=== PATIENT | female | born 1975 | race Caucasian/White ===

== ENCOUNTER → 2019-05-25 18:01 | Outpatient (CLI) | payer OTHER, SELFPAY ==
[2019-05-25 18:38] LABS: Basophils # 0.1 K/mm3 (0-0.2); Basophils % 0.7 % (0.1-2.0); Eosinophils # 0.2 K/mm3 (0.0-0.4); Eosinophils % 2.1 % (0.1-12.0); Hemoglobin 13.2 g/dL (12.2-16.2); Lymphocytes # 3.4 K/mm3 (0.7-4.5); Lymphocytes % 28.7 % (10-50); Mean Corpuscular HGB Conc 31.3 g/dL (31.8-35.4); Mean Corpuscular Hemoglobin 25.1 pg (27.0-31.2); Mean Corpuscular Volume 80.2 fl (81-99); Mean Platelet Volume 6.6 fl (7.4-10.4); Monocytes # 0.6 K/mm3 (0.1-1.0); Monocytes % 5.2 % (1.7-9.3); Neutrophils # 7.4 K/mm3 (1.8-7.8); Neutrophils % 63.4 % (37.0-80.0); Platelet Count 441 K/mm3 (142-424); Red Blood Count 5.23 M/mm3 (4.20-5.40); Red Cell Distribution Width 14.4 % (11.5-17.5); White Blood Count 11.7 K/mm3 (4.8-10.8)
[2019-05-25 19:03] LABS: Alanine Aminotransferase 27 U/L (12-78); Albumin Level 3.9 gm/dL (3.4-5.0); Alkaline Phosphatase 118 U/L (46-116); Anion Gap 12.5 mEq/L (5-15); Aspartate Amino Transferase 17 U/L (15-37); Bilirubin,Total 0.3 mg/dL (0.2-1.0); Blood Urea Nitrogen 9 mg/dL (7-18); Calcium 9.6 mg/dL (8.5-10.1); Carbon Dioxide 28 mmol/L (21.0-32.0); Chloride 103 mmol/L (98-107); Chol/HDL Ratio 3.6 (1-3.5); Cholesterol 154 mg/dL (140-200); Creatinine,Serum 0.85 mg/dL (0.55-1.02); Estimated Glomerular Filt Rate 73 ml/min (>60); GFR (African American) 88 ML/MIN (>60); Globulin 3.9 gm/dl (1.3-3.2); Glucose 95 mg/dL (74-106); HDL Cholesterol 43 mg/dL (29-89); LDL Cholesterol 98 mg/dL (0-130); Potassium 4.5 mmoL/L (3.5-5.1); Sodium 139 mmol/L (136-145); Thyroid Stimulating Hormone 4.73 uIU/ml (0.358-3.740); Total Protein,Serum 7.8 gm/dL (6.4-8.2); Triglycerides 66 mg/dL (30-200); VLDL Cholesterol 13 mg/dL (0-40)
[2019-05-28 07:16] LABS: Vitamin D 25 Hydroxy 26.5 ng/mL (30.0-100.0)
== END ==
PROVIDERS: Visit Provider Emergency Medicine
DX: R53.83 Other fatigue (principal); A04.4 Other intestinal Escherichia coli infections; E66.9 Obesity, unspecified; I10 Essential (primary) hypertension; B19.20 Unspecified viral hepatitis C without hepatic coma; Z72.0 Tobacco use
CPT/HCPCS: 80053; 80061; 82652; 84439; 84443; 85025

== ENCOUNTER → 2019-06-09 12:51 | Outpatient (CLI) | payer OTHER, SELFPAY ==
[2019-06-09 15:19] LABS: Ferritin 14 ng/mL (8-388)
[2019-06-10 08:13] LABS: Iron 40 ug/dL (27-159); UIBC 354 ug/dL (131-425)
[2019-06-10 10:50] LABS: Iron Saturation 10 % (15-55)
[2019-06-11 12:52] LABS: Peripheral Smear Review Scanned Result
== END ==
PROVIDERS: Visit Provider Physician Assistant
DX: D64.9 Anemia, unspecified (principal)
CPT/HCPCS: 36415; 82728; 83540; 83550

== ENCOUNTER 2019-08-06 14:30 | Outpatient (RCR) | payer OTHER, SELFPAY ==
--- NOTE | 2019-07-02 11:01 | HMH.PTOPEV ---
PT Outpatient Evaluation Rehab PT Outpatient Evaluation Start: 07/02/19 10:52 Freq: Status: Active Protocol: Document 07/02/19 10:52 BOBBY (Rec: 07/02/19 11:01 BOBBY [id number]) Electronically Signed By Hans You PT 07/02/19 10:52 Outpatient Therapy Subjective History Subjective History This is the initial physical therapy evaluation for Nati Deluna. Pt is a 44 y/o female referred to PT for c/o L foot /ankle pain and weakness. Pt reprots she had lumbar spinal sx on 10/02/17. Pt rpeorts when she woke from sx - she had weaknee in L ankle and inability to pronate foot or heather foot. Pt reprots neuro sx said it could take a year to come back . Pt also states that if she walks w/out brace her ankle rolls and she falls. Chief Complaint Pain,Weakness Symptom Type Ache,Sharp,Stabbing Symptoms Relieved By Rest/Positioning Symptoms Aggravated By Standing,Physical Activity, Walking Prior Functional Limitations None Current Functional Limitations Housework,Standing,Recreation Activity,Walking,Stairs, Balance Symptom Description Intermittent Level of pain today (0-10) 0 Pain scale - at its best (0-10) 0 Pain scale - at its worst (0-10) 8 Ankle/Foot Eval ROM left Ankle/Foot Dorsiflexion w/Knee Extended -15 from neutral Active Range Motion (degrees) Ankle/Foot Dorsiflexion w/Knee Extended 0 Passive Range (degrees) Ankle/Foot Plantar Flexion Active Range 50 of Motion (degrees) Ankle/Foot Eversion Active Range of 0 Motion (degrees) Ankle/Foot Inversion Active Range of 30 Motion (degrees) Ankle/Foot ROM Limitations Soft Tissue Tightness,Muscle Weakness MMT Ankle Dorsiflexion Strength Grade 4 Good Ankle Plantarflexion Strength Grade 5 Normal Foot Eversion Strength Grade 3- Fair- Foot Inversion Strength Grade 4 Good Outpatient Therapy Assessment Impairments Problems/Impairmments Impaired Range of Motion, Impaired Strength,Impaired Gait Pattern,Impaired Walking, Impaired Standing,Impaired Household Care,Impaired
== END 2019-08-06 14:35 | disposition home or self-care (01) ==
LOC: PT 14:30
PROVIDERS: PCP Emergency Medicine; Visit Provider Emergency Medicine
DX: M25.572 Pain in left ankle and joints of left foot (principal)
CPT/HCPCS: 97014; 97110; 97163; G0283

== ENCOUNTER 2019-08-20 15:00 | Outpatient (RCR) | payer OTHER, SELFPAY ==
--- NOTE | 2019-08-11 10:50 | HMH.PTOPEV ---
PT Outpatient Evaluation Rehab PT Outpatient Evaluation Start: 08/11/19 10:17 Freq: Status: Active Protocol: Document 08/11/19 10:17 BOBBY (Rec: 08/11/19 10:50 BOBBY [id number]) Electronically Signed By Hans You PT 08/11/19 10:17 Outpatient Therapy Subjective History Subjective History Pt reports to PT for L ankle instability and recurrent sprains. Pt reports she had back sx Oct 02 2017, and after sx began having weakness in ankle and inability to heather forcefullay and control unwanted inversion. Chief Complaint Pain Symptom Type Ache,Sharp,Stabbing,Shooting Symptoms Relieved By Heat Symptoms Aggravated By Physical Activity,Walking Prior Functional Limitations None Current Functional Limitations Housework,Recreation Activity, Walking,Stairs,Balance Symptom Description Constant but Variable Level of pain today (0-10) 2 Pain scale - at its best (0-10) 3 Pain scale - at its worst (0-10) 8 Ankle/Foot Eval ROM right Ankle/Foot Dorsiflexion w/Knee Extended 10 Active Range Motion (degrees) Ankle/Foot Plantar Flexion Active Range 60 of Motion (degrees) Ankle/Foot Eversion Active Range of 30 Motion (degrees) Ankle/Foot Inversion Active Range of 40 Motion (degrees) left Ankle/Foot Dorsiflexion w/Knee Extended 10 from neutral Active Range Motion (degrees) Ankle/Foot Plantar Flexion Active Range 50 of Motion (degrees) Ankle/Foot Eversion Active Range of 10 Motion (degrees) Ankle/Foot Inversion Active Range of 30 Motion (degrees) Ankle/Foot ROM Limitations Muscle Weakness MMT right Ankle Dorsiflexion Strength Grade 5 Normal Ankle Plantarflexion Strength Grade 5 Normal Foot Eversion Strength Grade 4 Good Foot Inversion Strength Grade 4 Good left Ankle Dorsiflexion Strength Grade 4 Good Ankle Plantarflexion Strength Grade 4 Good Foot Eversion Strength Grade 3- Fair- Foot Inversion Strength Grade 4 Good Neuro tests LE Dermatome Level S1 Outpatient Therapy Assessment Impairments Problems/Impairmments Impaired Range of Motion, Impaired Strength,Impaired Gait Pattern,Impaired Walking, Impaired Household Care, Impaired Stepping on Uneven Surface,Impaired Recreational Activities,Subjective C/O Pain
== END 2019-08-20 15:05 | disposition home or self-care (01) ==
LOC: PT 15:00
PROVIDERS: PCP Emergency Medicine; Visit Provider Emergency Medicine
DX: S99.912A Unspecified injury of left ankle, initial encounter (principal); M25.572 Pain in left ankle and joints of left foot
CPT/HCPCS: 97110; 97140; 97163

== ENCOUNTER → 2021-01-24 08:00 | Outpatient (CLI) | payer BC, SELFPAY | PROVIDERS: PCP Emergency Medicine; Visit Provider Internal Medicine Pulmonary Disease | DX: R06.09 Other forms of dyspnea (principal) | CPT/HCPCS: 94060; 94726; 94729 ==

== ENCOUNTER → 2021-03-03 07:32 | Outpatient (CLI) | payer BC, SELFPAY ==
--- NOTE | 2021-03-03 07:33 | CA_ITS ---
APPROVED REPORT Printed Circuit Board Designer: Monica Colon RVT Study Quality: Good Indications: malignant htn,hx kidney stones Risk Factors Hypertension Obesity Smoking Renal Artery Doppler Origin (R) 169.0/ cm/sec Proximal (R) 158.9/ cm/sec Mid (R) 105.9/ cm/sec Distal (R) 151.7/ cm/sec Renal Aorta Ratio (R) 1.62 Segmental A. (R) 50.7/19.7 cm/sec RI: 0.61 Segmental A. Sup (R) 43.7/18.3 cm/sec Segmental A. Mid (R) 50.7/19.7 cm/sec Segmental A. Inf (R) 24.0/11.3 cm/sec Origin (L) 188.3/ cm/sec Proximal (L) 232.6/ cm/sec Mid (L) 158.9/ cm/sec Distal (L) 174.8/ cm/sec Renal Aorta Ratio (L) 2.23 Segmental A. (L) 59.2/24.6 cm/sec RI: 0.58 Segmental A. Sup (L) 59.2/23.1 cm/sec Segmental A. Mid (L) 59.2/24.6 cm/sec Segmental A. Inf (L) 49.1/17.3 cm/sec Renal Measurements Kidney Size (R) 12.0x6.8 cm Cortical Thickness (R) 1.6 cm Kidney Size (L) 12.6x9.0 cm Cortical Thickness (L) 1.6 cm Findings Study suggests greater than 60% stenosis of the left renal artery. Study suggests no stenosis in the right renal artery. There is a 1.7 X 2.2 cm cyst mid pole left kidney. There is a 1.0 X 1.2 cm hyperechoic area seen lower pole right kidney, ? non-obstructing stone. Bilateral non-obstructing nephrolithiasis seen. Conclusion Study suggests greater than 60% stenosis of the left renal artery. Study suggests no stenosis in the right renal artery. There is a 1.7 X 2.2 cm cyst mid pole left kidney. There is a 1.0 X 1.2 cm hyperechoic area seen lower pole right kidney, ? non-obstructing stone. Bilateral non-obstructing nephrolithiasis seen. Electronically signed by : Trent Luo MD 03/03/2021 08:54:26
== END ==
PROVIDERS: PCP Emergency Medicine; Visit Provider Urology
DX: I10 Essential (primary) hypertension (principal)
CPT/HCPCS: 93976; G0399

== ENCOUNTER → 2021-03-08 06:59 | Outpatient (CLI) | payer BC, SELFPAY ==
--- NOTE | 2021-03-08 | CA_ITS ---
APPROVED REPORT Exam: Pharmacologic Technologist: Mary Alice Ruff, Ht: 5 ft 10 in Wt: 335 lbs BSA: 2.60 m2 HR: 60 bpm BP: 155/73 mmHg Medical History Medications: Lisinopril,,,,, Gabapentin,,,,, HCTZ,,,,, Albuterol,,,,, StIOLto Respimat,,,,, Stress Test Details Test: LEXISCAN HR Resting HR: 65 bpm Max Heart Rate (APMHR): 175.125799 bpm Max HR Achieved: 113 bpm Target HR (85% APMHR): 148.295077 bpm % of APMHR: 64.57 Recovery HR: 78 bpm BP Resting BP: 155/73 mmHg Max BP: 187/93 mmHg Recovery BP: 163.0/83.0 mmHg ECG Resting ECG: Sinus elmer, low voltage QRS, PAC Clinical Exercise duration: 04:01 min Highest Stage Achieved: Stress ECG Conclusion Symptoms: SOA, heavy legs, back discomfort. Arrhythmias/Ectopy: Occ PAC, rare PVC. Transient prolongation of QT interval. ST-T Changes: NS T wave changes. Conclusion: Unremarkable Lexiscan stress. Myoview images reported separately. Test Summary REST 03:23 . . 65 . 155/ 73 . . Stage 1 . . . . . . . Cardiolite injected Stage 1 01:00 . . 113 . . . . Stage 2 01:00 . . 81 . . . . Stage 3 01:00 . . 81 . . . . Stage 4 01:00 . . 75 . . . . Stage 4 01:01 . . 75 . . . Stop exercise at 04:01 RECOVERY 01:00 . . 72 . 187/ 93 . . RECOVERY 02:00 . . 74 . 187/ 93 . . RECOVERY 03:00 . . 67 . 187/ 93 . . RECOVERY 04:00 . . 71 . 187/ 93 . . RECOVERY 05:00 . . 63 . 163/ 83 . . RECOVERY 06:00 . . 76 . 163/ 83 . . RECOVERY 07:00 . . 70 . 163/ 83 . . RECOVERY 07:45 . . 66 . 163/ 83 . . Electronically signed by : Jonel Almodovar, 03/09/2021 10:32:28
--- NOTE | 2021-03-08 07:06 | NM_ITS ---
APPROVED REPORT Exam: Nuclear Stress Test Indication: Chest pain, SOB, Syncope, Fatigue, HTN, Tobacco use, Family history Patient Location: Outpatient Stress Tech: Mary Alice Ruff [place] Tech:Zahra Up, ARRT, RT (R)(N) Ht: 5 ft 11 in Wt: 330 lbs Bra Size: 44DDD HR: 60 bpm BP: 155/73 mmHg BSA: 2.61 m2 BMI: 46.0 History: Chest pain, SOB, Syncope, Fatigue, HTN, Tobacco use, Family history Procedure: Patient received a 0.4 mg of intravenous Lexiscan, resting heart rate 60 bpm, resting blood pressure 155/73 mmHg, with Lexiscan maximum heart rate achived was 111 bpm which is Less than 85 % of the maximum predicted heart rate and blood pressure was 187/93 mmHg. With Lexiscan, patient denied any complaint of chest pain. Electrocardiogram Resting electrocardiogram shows sinus rhythm, with Lexiscan there is less than 1.[address] segment depression noted from the baseline EKG. The EKG portion of the Lexiscan is nondiagnostic. Cardiac Stress and Resting SPECT Images: Cardiac Stress and Resting SPECT images were obtained using technetium 99m Myoview 31.1 mCi stress and 10.26 mCi at rest. Gated SPECT for analysis of segmental wall motion and calculation of the ejection fraction also done. Prone images were also obtained. Cardiac stress and resting SPECT images show uniform myocardial activity without segmental perfusion abnormality, computer derived ejection fraction is 54% with no regional wall motion abnormality, right ventricle is normal size and contractility. Conclusion: 1. The EKG portion of the Lexiscan is nondiagnostic. 2. No scintigraphic evidence of reversible ischemia seen, computer derived ejection fraction is 54% with no regional wall motion abnormality, right ventricle is normal size and contractility. 3. Normal Lexiscan Myoview study. Electronically signed by : Jonel Almodovar, 03/09/2021 10:43:49
--- NOTE | 2021-03-08 09:14 | HMH.ITSHM ---
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 []TIOTROPIUM LISINOPRIL IPRATROPIUM HCTZ CARVEDILOL ALBUTEROL GABAPENTIN
== END ==
LOC: RAD 07:00
PROVIDERS: PCP Emergency Medicine; Visit Provider Urology
DX: R06.00 Dyspnea, unspecified (principal); R07.9 Chest pain, unspecified; R94.31 Abnormal electrocardiogram [ECG] [EKG]; I10 Essential (primary) hypertension; Z72.0 Tobacco use
CPT/HCPCS: 78452; 93017; A9502; J2785

== ENCOUNTER → 2021-03-15 12:10 | Outpatient (CLI) | payer BC, SELFPAY ==
[2021-03-15 12:44] LABS: Iron 50 ug/dL (37-170)
[2021-03-15 12:54] LABS: Total Iron Binding Capacity 362 ug/dL (265-497)
== END ==
PROVIDERS: Visit Provider Nurse Practitioner Family
DX: E83.10 Disorder of iron metabolism, unspecified (principal); G25.81 Restless legs syndrome; Z86.2 Personal history of diseases of the blood and blood-forming organs and certain disorders involving the immune mechanism
CPT/HCPCS: 36415; 82728; 83540; 83550

== ENCOUNTER → 2021-03-21 12:32 | Outpatient (CLI) | payer BC, SELFPAY ==
--- NOTE | 2021-03-21 12:32 | CT_ITS ---
Procedure: CT ANGIO ABDOMEN CLINICAL HISTORY: abnormal renal duplex HTN No prior COMPARISON: US CA RENAL ARTERY DUPLEX from 03/03/2021 TECHNIQUE: IV Contrast: 100ml Isovue 370 Axial images obtained with sagittal and coronal reformats. All CT scans at the facility use one or more dose reduction, viz: automated exposure control, ma/kV adjustment per patient size (including targeted exams where dose is matched to indication, i.e. head), or iterative reconstruction technique. FINDINGS: The abdominal aorta has an unremarkable appearance. Unremarkable appearing right renal artery. There are 2 left renal arteries with the dominant artery in the upper pole with mild narrowing distally of the left main renal artery of approximately 40 percent.. There is a small accessory renal artery to the lower pole on the left. The celiac and SMA show no significant stenosis. There is mild fusiform dilatation of the celiac artery just at and distal to the left gastric artery measuring approximately 1 cm in diameter. No evidence of aortic aneurysm. The SURYA is patent. The iliacs have an unremarkable appearance. Lung bases are clear. There is mild diffuse fatty liver infiltration. There has been a prior cholecystectomy. The spleen, adrenal glands, and pancreas have an unremarkable appearance. Hypodensity is present in the left kidney posteriorly measuring 2 cm having a cystic appearance on previous ultrasound. There is degenerative changes in the lumbar spine with degenerative disc disease at L4-5 and L5-S1 IMPRESSION: 1. Mild renal artery stenosis of the distal aspect of the left main renal artery of approximately 40 percent. No high-grade stenosis apparent. 2. Accessory small renal artery to the lower pole of the left kidney as a normal variant. 3. 2 cm left renal cyst 4. Mild fusiform dilatation of the celiac trunk nonspecific Dictated by: Andres Freedman MD 03/22/2021 07:35 Andres Freedman MD in [place] 03/22/2021 07:35
== END ==
PROVIDERS: PCP Emergency Medicine; Visit Provider Urology
DX: I70.1 Atherosclerosis of renal artery (principal); R06.00 Dyspnea, unspecified; R39.9 Unspecified symptoms and signs involving the genitourinary system; I10 Essential (primary) hypertension; B19.20 Unspecified viral hepatitis C without hepatic coma; E66.01 Morbid (severe) obesity due to excess calories; G47.33 Obstructive sleep apnea (adult) (pediatric); Z68.42 Body mass index [BMI] 45.0-49.9, adult; Z72.0 Tobacco use
CPT/HCPCS: 74175; Q9967

== ENCOUNTER → 2021-04-18 11:15 | Outpatient (CLI) | payer BC, SELFPAY ==
--- NOTE | 2021-04-18 11:21 | XR_ITS ---
PROCEDURE: XR LUMBAR SPINE MIN 4V CLINICAL INDICATION: pain COMPARISON: No exams were available for comparison FINDINGS: No fracture or dislocation. No lytic or blastic change. There is normal mineralization. There is normal alignment. There is straightening of the lumbar lordosis which could be due to patient positioning or muscle spasm. Degenerative disc disease with anterior osteophyte noted at L2-L3. Degenerative disc disease L4-5 and L5-S1. Facet arthritic changes with bony hypertrophy at L4-L5 and S1. Other findings:None. IMPRESSION: Lumbar spondylosis as described above. No acute fracture Dictated by: Andres Freedman MD 04/18/2021 13:09 Andres Freedman MD in [facility] 04/18/2021 13:09
== END ==
PROVIDERS: PCP Family Medicine; Visit Provider Family Medicine
DX: M54.5 Low back pain (principal)
CPT/HCPCS: 72110

== ENCOUNTER → 2021-05-15 10:52 | Outpatient (POV) | payer BC, SELFPAY ==
[2021-05-15 11:31] VITALS: BP 186/62; PULSE 72; RESP 18; O2SAT 99; BMI 74.6
--- NOTE | 2021-05-15 12:13 | HMH.PMCON ---
Assessment and Plan (1) Degenerative joint disease (DJD) of lumbar spine Status: Chronic Category: Medical Code(s): M47.816 - Spondylosis without myelopathy or radiculopathy, lumbar region (2) Lumbar radiculopathy Status: Chronic Category: Medical Code(s): M54.16 - Radiculopathy, lumbar region (3) Facet arthropathy Status: Chronic Category: Medical Code(s): M47.819 - Spondylosis without myelopathy or radiculopathy, site unspecified (4) Lumbar spondylosis Status: Chronic Category: Medical Code(s): M47.816 - Spondylosis without myelopathy or radiculopathy, lumbar region (5) Spinal stenosis Status: Chronic Category: Medical Code(s): M48.00 - Spinal stenosis, site unspecified - Assessment and plan all Dx Assessment and Plan for all problems:: Unfortunately, the patient was denied an MRI by her insurance. The patient's primary care provider did seek approval for the MRI. Patient's pain has changed since 2018 and since her surgery from 2017. She is now having pain in her left low back area as well as her mid back area with radiation into her left buttock, left hip, left leg and foot. She is not tender to palpation to her left SI joint today. She is also negative for Domenic's, compression or distraction. She is attempting physical therapy once again, however, her pain is worsening. Patient does try home modified stretching program. She is unable to take anti-inflammatories due to renal insufficiency. Patient has been taking [place] by her primary care provider but does wish to stop taking oral narcotics. Patient has had surgery as well as multiple injections with no long-term benefits. We will attempt to get an MRI for the patient of her lumbar spine. We will also send the patient for psychological evaluation for possible spinal cord stimulation versus intrathecal therapy. Patient has not gotten any relief from surgical intervention or from injective therapy in the past. We will see her back after her MRI and psychological evaluation to discuss a further plan of care. Patient has been instructed to contact the clinic if she has any concerns before her next appointment. Patient has been instructed to contact the clinic with any concerns before the next appointment. Dr. Stewart has reviewed this note and agrees with this plan of care. This note was dictated using voice recognition software and make contain errors or omissions. HPI - Data of Consult Patient: new to practice Consult date: 05/15/21 Requesting Physician: Judy Wright APRN Primary Care Provider: Matt Arredondo MD - Consult Narrative Reason for consult: Low back pain, left leg pain History of present illness: Ms. Deluna is a 46 year old female who presents today for consultation for chronic low back pain. Patient was referred to us by Dr. Arredondo. Patient reports that she is having low back pain with radiation into her left lower extremity. In the past, the patient's pain was in her low back with radiation into the right lower extremity. Patient did undergo surgical intervention in [address] Huang in [facility] [place]. She says the surgery was performed at the L3-L4 area. She is unsure what type of surgery she had at that time. She says that in 2012 she had a another surgery with Dr. Carolina. She says that this took all of her pain away to her right lower extremity. Patient was doing well until 2016 for which she then began to develop pain in her left low back area and radiation to her left leg. Dr. Tate did perform another surgical intervention?surgery unknown. Patient says since the surgery she is continued to have left buttock, left hip and left leg pain. She says that her pain does not go behind the left knee and into the left foot. She says she is also having difficulty standing on her left ankle. She says her left ankle will roll and cause her to fall . Patient has had physical therapy with no significant
== END ==
PROVIDERS: PCP Family Medicine; Visit Provider Clinical Nurse Specialist Family Health
DX: M47.896 Other spondylosis, lumbar region (principal); M54.16 Radiculopathy, lumbar region; M48.00 Spinal stenosis, site unspecified
CPT/HCPCS: 99202; G0463

== ENCOUNTER → 2021-05-23 16:47 | Outpatient (CLI) | payer BC, SELFPAY ==
--- NOTE | 2021-05-23 16:50 | MR_ITS ---
PROCEDURE: MR LUMBAR SPINE WO CON CLINICAL INDICATION: BACK PAIN Low back pain with left leg pain COMPARISON: CT CT ANGIO ABDOMEN from 03/21/2021 CR XR LUMBAR SPINE MIN 4V from 04/18/2021 TECHNIQUE: Standard multiplanar multiecho sequences are performed without contrast. 3-D MIP and myelographic images are also rendered and reviewed FINDINGS: Normal alignment. The spinal cord ends at the L1 level. There is straightening of the lumbar lordosis which could be due to patient positioning or muscle spasm. This is not significantly changed. L1-L2: Mild facet hypertrophic change. L2-L3: Degenerative disc disease with anterior endplate osteophytes with facet and ligamentum hypertrophy and minimal bulging disc with mild bilateral lateral recess narrowing L3-L4: Facet and ligamentum hypertrophy with moderate bilateral lateral recess narrowing slightly greater on the right. Mild bilateral foraminal narrowing with borderline canal stenosis. L4-5: Degenerative disc disease with type 2 endplate changes along with facet and ligamentum hypertrophic change. 3 mm retrolisthesis of L4 on L5. There is mild right and moderate left-sided foraminal narrowing. Borderline canal stenosis. The left-sided facet hypertrophy does abut the exiting L4 nerve root. There is transverse narrowing of the canal. L5-S1: Severe facet and ligamentum hypertrophic changes left greater than right with mild bulging disc. With severe bilateral foraminal narrowing greater on the left with impingement upon the exiting L5 nerve roots. Small broad-based central and right paracentral disc osteophyte complex abutting the anterior aspect of the right S1 nerve root with bilateral lateral recess narrowing right greater than left. There are small bilateral renal cysts. No extruded herniated disc is evident... IMPRESSION: 1. L2-L3: Degenerative disc disease with anterior endplate osteophytes with facet and ligamentum hypertrophy and minimal bulging disc with mild bilateral lateral recess narrowing 2. L3-L4: Facet and ligamentum hypertrophy with moderate bilateral lateral recess narrowing slightly greater on the right. Mild bilateral foraminal narrowing with borderline canal stenosis. 3. L4-5: Degenerative disc disease with type 2 endplate changes along with facet and ligamentum hypertrophic change. 3 mm retrolisthesis of L4 on L5. There is mild right and moderate left-sided foraminal narrowing. Borderline canal stenosis. The left-sided facet hypertrophy does abut the exiting L4 nerve root. There is transverse narrowing of the canal. 4. L5-S1: Severe facet and ligamentum hypertrophic changes left greater than right with mild bulging disc. With severe bilateral foraminal narrowing greater on the left with impingement upon the exiting L5 nerve roots. Small broad-based central and right paracentral disc osteophyte complex abutting the anterior aspect of the right S1 nerve root with bilateral lateral recess narrowing right greater than left. 5. No extruded herniated disc evident. Dictated by: Andres Freedman MD 05/24/2021 07:23 Andres Freedman MD in [place] 05/24/2021 07:23
== END ==
PROVIDERS: PCP Family Medicine; Visit Provider Clinical Nurse Specialist Family Health
DX: M54.5 Low back pain (principal)
CPT/HCPCS: 72148; 76376

== ENCOUNTER → 2021-06-26 10:41 | Outpatient (POV) | payer BC, SELFPAY ==
[2021-06-26 10:57] VITALS: BP 193/89; PULSE 89; RESP 18; O2SAT 98; BMI 53.1
--- NOTE | 2021-06-26 12:32 | HMH.PAINSOAP ---
[facility] Pain Management SOAP Note Subjective:: Patient is a 46-year-old white female who presents today for follow-up. The patient has been seen in the clinic for degenerative disc disease lumbar spine with lumbar radiculopathy symptoms. Patient does have pain radiating into her bilateral lower extremities with heaviness and weakness in lower extremities as well as numbness and tingling into her lower extremities. She did see neurosurgery in [facility]. Patient says that the surgeon was not receptive to the patient's complaints of pain. She felt that she was not heard or listened to during that appointment. She says that she was informed by the neurosurgeon that her symptoms do not coincide with her MRI. Patient does have nerve root impingement per her MRI report. She and I did discuss possible spinal cord stimulation at her last visit, however, patient is having mid back pain as well as neck pain. She has not had any imaging of her thoracic spine. She did undergo a psychological evaluation to determine if she was an appropriate candidate for intrathecal therapy versus spinal cord stimulation. Patient does rate her pain a 7 out of 10 today. She has tried physical therapy for greater than 6 weeks in the past and continues with home stretching. Injective therapy has not given the patient any relief at this point. She is currently on [place] 5 mg 1 tablet p.o. daily and gabapentin 600 mg 1 tab twice daily. Review of Systems General: No recent weight changes, no fever, no sleep disturbances Respiratory: No cough, no shortness of air, no recurring pulmonary infections Cardiovascular/peripheral vascular: No chest pain, no palpitations, no edema, no shortness of breath Gastrointestinal: No new onset incontinence, normal bowel movements reported Genitourinary: No new onset incontinence Musculoskeletal: Low back pain with radiation into bilateral lower extremities Psychiatric: [Normal mood/affect] Neurological: Heaviness and weakness in lower extremities Objective:: Physical exam General: Alert and oriented x3, no acute distress, pleasant and cooperative Lungs: Respirations even and unlabored, symmetrical chest expansion Eyes: PERRL Musculoskeletal: Flexion and extension of lumbar [spine] somewhat guarded secondary to pain, [antalgic gait noted] Neurological: Speech clear, no gross sensory deficit Assessment:: Degenerative disc disease lumbar spine with lumbar radiculopathy symptoms, nerve root impingement Plan:: Patient is a 46-year-old white female who presents with continued chronic low back pain. She has tried conservative therapies of physical therapy for more than 6 weeks, home stretching, anti-inflammatories, as well as [place] and gabapentin. The patient does have low back pain, but also complains of mid back pain as well as occasional neck pain. She has not had imaging of her thoracic spine. She would like to undergo an MRI. We will schedule her for an MRI of her thoracic spine. The patient's pain is worse when she is standing and walking and does improve somewhat with sitting. She has had injective therapy which did not give her any significant relief. She has seen neurosurgery who did not feel the patient was an appropriate surgical candidate at this time. Patient has discussed in detail the spinal cord stimulator and intrathecal pump. She would like to proceed with intrathecal therapy. We will schedule her for the trial with intrathecal therapy. She does understand she will need to be off of her oral opiates prior to the trial. She is in agreement. We will review the MRI once it is completed. Risks and benefits of the procedure have been explained to the patient. Patient would like to proceed with the procedure. Patient has been instructed to contact the clinic with any concerns before the next appointment. Dr. Stewart has reviewed this note and agrees with this plan of care. This note was dictated using voi
== END ==
PROVIDERS: Visit Provider Clinical Nurse Specialist Family Health
DX: M51.16 Intervertebral disc disorders with radiculopathy, lumbar region (principal)
CPT/HCPCS: 99212; G0463

== ENCOUNTER 2021-07-05 08:03 | Day surgery (SDC) | payer BC, SELFPAY ==
[2021-07-05] VITALS (10 sets, daily range): BP systolic 101–171; BP diastolic 54–97; PULSE 68–80; RESP 18–20; TEMP 36.6; O2SAT 94–99; BMI 46.0
--- NOTE | 2021-07-05 10:38 | HMH.PMPROC ---
- Procedure Date: 07/05/21 Time: 10:38 Anesthesiologist:: Reza Stewart MD Complications:: None Pre-procedure Diagnosis:: Postlaminectomy syndrome lumbar spine with lumbar radiculopathy symptoms Post-procedure Diagnosis:: Same Indications for Procedure:: Patient is a pleasant 46-year-old white female who we are treating for low back pain with lumbar radiculopathy symptoms and postlaminectomy syndrome lumbar spine. She has had 3 previous back surgeries. She did see a neurosurgeon in [place] and was told that she may not be a candidate for any further surgery. She has failed all previous conservative therapy including injections, oral medications, physical therapy and previous surgery. Most of her pain is in the back rating down the leg she also has some mid back pain and neck pain as well. She is on [place] which helps a little bit. She is also on gabapentin. We will do intrathecal pump trial today to see if this helps with her symptoms. She has been off her [place] for 48 hours. She has had a successful psychological evaluation. Procedure Details:: Pain pump trial Informed consent was obtained and the risk and benefits of the procedure was explained to the patient. The patient was taken to the procedure room and placed prone on the procedure table. Patient was prepped and draped in sterile fashion. C-arm fluoroscopy was used to view the lumbar spine. The skin and subcutaneous tissues were anesthetized using lidocaine. I placed a 18-gauge spinal needle into the L4-5 interspace and advanced until clear CSF was obtained. After this intrathecal catheter was inserted and advanced very easily to the L1 vertebral body. The needle was withdrawn. We were able to freely withdraw clear CSF through the catheter. We then injected intrathecal fentanyl single shot bolus of 25 mcg followed by saline and followed by the previous CSF that was withdrawn. The needle and catheter were then removed and a Band-Aid was placed. Patient tolerated the procedure well with no complications. We reevaluated the patient after 30 minutes to 1 hour. She was also reassessed by physical therapy. Patient was 80 to 90% better. She had minimal pain. She was much more functional. She was walking better and standing longer. This was a successful trial. She wants to proceed with permanent placement. We will plan on permanent placement with intrathecal morphine 5 mg/mL to start at 0.25 mg/day. Catheter tip will be at the L1 vertebral body. We will schedule appoint with Dr. Navarrete for permanent placement evaluation. Plan and Disposition:: We will have her follow-up with Dr. Navarrete for permanent placement evaluation. We will plan on permanent placement of intrathecal pain pump for postlaminectomy syndrome lumbar spine. This will be with intrathecal morphine 5 mg per mall to start at 0.25 mg/day. Catheter tip will be at the L1 vertebral body.
--- NOTE | 2021-07-05 11:01 | PC.NURSE ---
0920-pt returned to bay, accompanied by nursing staff. VSS, no c/o pain. lumbar dressing c/d/i. pt set up with breakfast tray. no needs or concerns at this time 0935-pt resting in chair, tolerating PO intake. VSS, no c/o pain. lumbar dressing c/d/i. pt medicated for c/o itching by Kathe Bauman RN. no other needs or concerns at this time 0950-pt resting in chair. VSS, no c/o pain. lumbar dressing c/d/i. continues to c/o itching. no other needs at this time. 1005-pt resting in chair. VSS, no c/o pain. lumbar dressing c/d/i. no needs or concerns at this time. 1020-pt resting in chair. Medicated with Zofran per prn order by Kathe Bauman RN. pt without any other needs or concerns at this time 1028-pt ambulated to nurse's station. gait steady. no c/o pain 1035-pt resting in chair VSS, no c/o pain. no other needs or concerns at this time. 1033-Physical therapy at bedside for evaluation. 1040-VSS, no c/o pain. pt verbalized readiness for discharge. IV discontinued. site wnl.
== END 2021-07-05 10:40 | disposition home or self-care (01) ==
LOC: SC.PAINP 08:05
PROVIDERS: PCP Family Medicine; Visit Provider Anesthesiology
DX: M96.1 Postlaminectomy syndrome, not elsewhere classified (principal); M54.16 Radiculopathy, lumbar region; J44.9 Chronic obstructive pulmonary disease, unspecified; E11.9 Type 2 diabetes mellitus without complications; Z72.0 Tobacco use; I10 Essential (primary) hypertension; M19.90 Unspecified osteoarthritis, unspecified site; Z90.49 Acquired absence of other specified parts of digestive tract; Z88.0 Allergy status to penicillin; Z88.1 Allergy status to other antibiotic agents
CPT/HCPCS: 62350; 96365

== ENCOUNTER → 2021-07-10 16:53 | Outpatient (CLI) | payer BC, SELFPAY ==
--- NOTE | 2021-07-10 16:59 | MR_ITS ---
PROCEDURE: MR THORACIC SPINE WO CON CLINICAL INDICATION: MID BACK PAIN Mid back pain for 3 months. Pain intermittent on right side. COMPARISON: CT CT ANGIO ABDOMEN from 03/21/2021 TECHNIQUE: Routine multiplanar multi echo sequences are performed without gadolinium enhancement. FINDINGS: At T6-7, there is a central disc protrusion abutting the anterior thecal sac. There is a T5 vertebral body hemangioma. The axial images unfortunately were acquired starting at T2-3 and terminate at T8-9. the canal is widely patent throughout those images as well as on the sagittal acquisitions. There is no significant thoracic spondylosis. There is a spinous process hemangioma at T4. There is a tiny hemangioma in the T6 vertebral body. IMPRESSION: Tiny central disc protrusion abutting the anterior thecal sac at T6-7 with otherwise widely patent thoracic spinal canal at visualized levels and no significant thoracic spondylosis. Dictated by: Amber Sanders MD 07/11/2021 13:24 Amber Sanders MD in [place] 07/11/2021 13:24
== END ==
PROVIDERS: PCP Family Medicine; Visit Provider Clinical Nurse Specialist Family Health
DX: M54.6 Pain in thoracic spine (principal)
CPT/HCPCS: 72146

== ENCOUNTER → 2021-07-14 09:07 | Outpatient (POV) | payer BC, SELFPAY ==
[2021-07-14 09:21] VITALS: BP 167/96; PULSE 88; RESP 20; TEMP 36.5; O2SAT 98; BMI 44.7
--- NOTE | 2021-07-14 09:35 | HMH.PAINSOAP ---
[facility] Pain Management SOAP Note Subjective:: Patient is a pleasant 46-year-old white female who we have been treating for low back pain with lumbar radiculopathy symptoms and postlaminectomy syndrome lumbar spine. She did very well with her intrathecal pump trial. She was 80 to 90% better she was much more functional. She wants to proceed with permanent placement of her intrathecal pain pump. We will plan on perm placement of her intrathecal pain pump. She did have some questions about her thoracic MRI which is why she is here today. Objective:: Alert and oriented x3 no acute distress. Patient does have an antalgic gait. Motor strength of lower extremities is 5/5. There is no gross sensory deficit. Assessment:: Postlaminectomy syndrome lumbar spine with lumbar radiculopathy symptoms with degenerative disc disease of the thoracic spine Plan:: We have reviewed her MRI of the thoracic spine with her. She does have some bulging disc with facet arthropathy however nothing significant. We will plan on permanent placement of intrathecal pain pump 5 mg/mL intrathecal morphine to start at 0.25 mg/day to help with her low back pain and leg pain. [facility] History Medical History: Reports:: Chronic Obstructive Pulmonary Disease (COPD), Hepatitis, Hypertension, Kidney Stones Denies:: Cancer, Diabetes Mellitus Type 1, Diabetes Mellitus Type 2, MRSA, Seizures *Have you ever received a pneumonia vaccine?: No *Have you received a flu vaccine this season?: No Other Medical History: Reports: Arthritis, Other Other Surgeries: Yes: Cholecystectomy, Tubal Ligation, Other Amputation: No Fractures: No - *Social History Smoking Status: Current every day smoker Tobacco Type: cigarettes # Packs/Day (cigarettes): 1 #Yrs smoked (if former smoker): 30 Alcohol Intake: never Substance Use Type: former substance user, opiates, methamphetamine (she used from ages [age] years old. ) *Occupational Status:: employed Housing: house Household Members: spouse *Travel in the last 8 weeks: None Family Hx:: Diabetes, Heart Attack, Hyperlipidemia, Hypertension, Thyroid Disorder, Cancer
== END ==
PROVIDERS: PCP Family Medicine; Visit Provider Anesthesiology
DX: M96.1 Postlaminectomy syndrome, not elsewhere classified (principal); M51.16 Intervertebral disc disorders with radiculopathy, lumbar region; M51.34 Other intervertebral disc degeneration, thoracic region
CPT/HCPCS: 99212; G0463

== ENCOUNTER → 2021-07-14 09:11 | Outpatient (CLI) | payer BC, SELFPAY ==
--- NOTE | 2021-07-14 | XR_ITS ---
PROCEDURE INFORMATION: Exam: XR Right Hip Exam date and time: 07/14/2021 12:00 AM Age: 46 years old Clinical indication: Hip pain; Right hip; Patient HX: Fall TECHNIQUE: Imaging protocol: XR Right hip. Views: 2 or 3 views hip with pelvis when performed. COMPARISON: CT ABDOMEN PELVIS WO CON 05/13/2019 10:16 PM FINDINGS: Bones/joints: There are mild degenerative changes in the right hip joint. There is no evidence of acute fracture. There is no evidence of joint malalignment or dislocation. Soft tissues: Unremarkable. IMPRESSION: 1. There are mild degenerative changes in the right hip joint. 2. No evidence of acute fracture. 3. No evidence of acute dislocation.
--- NOTE | 2021-07-14 09:33 | XR_ITS ---
PROCEDURE INFORMATION: Exam: XR Left Hip Exam date and time: 07/14/2021 9:33 AM Age: 46 years old Clinical indication: Hip pain; Left hip; Additional info: Fall TECHNIQUE: Imaging protocol: XR Left hip. Views: 2 or 3 views hip with pelvis when performed. COMPARISON: CT ABDOMEN PELVIS WO CON 05/13/2019 10:16 PM FINDINGS: Bones/joints: There are mild degenerative changes in the left hip joint.There is no evidence of acute fracture. There is no evidence of joint malalignment or dislocation. Soft tissues: No soft tissue swelling. IMPRESSION: 1. No evidence of acute fracture. 2. No evidence of acute dislocation.
--- NOTE | 2021-07-14 09:33 | XR_ITS ---
PROCEDURE INFORMATION: Exam: XR Lumbosacral Spine Exam date and time: 07/14/2021 9:33 AM Age: 46 years old Clinical indication: Low back pain TECHNIQUE: Imaging protocol: XR of the lumbosacral spine. Views: 2 or 3 views. COMPARISON: MR LUMBAR SPINE WO CON 05/23/2021 5:29 PM FINDINGS: Bones/joints: The lumbar spine demonstrates mild degenerative changes at multiple levels. There is no evidence of acute fracture. Disc space narrowing and bilateral neural foraminal narrowing noted L2-L3 and L5-S1. The facet joints demonstrate mild degenerative hypertrophy and sclerosis. Soft tissues: Unremarkable. Intraperitoneal space: There has been a cholecystectomy. IMPRESSION: 1. The lumbar spine demonstrates mild degenerative changes at multiple levels. 2. No evidence of acute fracture. 3. Disc space narrowing and bilateral neural foraminal narrowing noted L2-L3 and L5-S1.
== END ==
PROVIDERS: PCP Family Medicine; Visit Provider Family Medicine
DX: M47.816 Spondylosis without myelopathy or radiculopathy, lumbar region (principal)
CPT/HCPCS: 72100; 73502

== ENCOUNTER → 2021-07-27 14:24 | Outpatient (POV) | payer BC, SELFPAY ==
[2021-07-27 14:38] VITALS: BP 156/79; PULSE 84; RESP 18; O2SAT 97; BMI 46.0
--- NOTE | 2021-07-27 14:58 | HMH.PAINSOAP ---
[facility] Pain Management SOAP Note Subjective:: Patient is a 46-year-old white female who presents today for follow-up after an intrathecal pain pump trial. The patient has chronic low back pain with bilateral lower extremity pain as well as chronic neck pain. The patient does have a history of postlaminectomy syndrome lumbar spine. The patient underwent the intrathecal pain pump trial and was what she reports to be at 100% better. Today, she rates her pain an 8 out of 10. She says that she got approximately 12 hours of relief following the trial. She had no pain at that time. Patient's pain has returned. Patient's last dose of [place] 5 mg was given by Dr. Arredondo on 07/06/2021 with #10 count. She is not on any oral medications at this time. She has tried failed conservative therapies of physical therapy for more than 6 weeks along with continued home stretching and anti-inflammatories. She has also tried injective therapy with minimal relief. She had a successful psychological evaluation and was considered an appropriate candidate to proceed with intrathecal therapy. She is ready to proceed with the implant. Review of Systems General: No recent weight changes, no fever, no sleep disturbances Respiratory: No cough, no shortness of air, no recurring pulmonary infections Cardiovascular/peripheral vascular: No chest pain, no palpitations, no edema, no shortness of breath Gastrointestinal: No new onset incontinence, normal bowel movements reported Genitourinary: No new onset incontinence Musculoskeletal: Low back pain with radiation into bilateral lower extremities, chronic neck pain Psychiatric: [Normal mood/affect] Neurological: [Denies weakness in extremities], [denies balance issues] Objective:: Physical exam General: Alert and oriented x3, no acute distress, pleasant and cooperative Lungs: Respirations even and unlabored, symmetrical chest expansion Eyes: PERRL Musculoskeletal: Flexion and extension of cervical lumbar [spine] somewhat guarded secondary to pain, [antalgic gait noted] Neurological: Speech clear, no gross sensory deficit Assessment:: Degenerative disc disease lumbar spine with lumbar radiculopathy symptoms, chronic neck pain Plan:: Patient had a successful intrathecal pain pump trial. She reports today that she got 100% relief for up to 12 hours following the trial. She is ready to proceed with implant. She and I discussed the procedure in detail today with expectations of the pump and postoperative care. She has also been advised of the risks and side effects of morphine in the intrathecal pump. The patient is not diabetic and is not on any anticoagulation therapy. She has tried and failed conservative therapies with minimal relief. We will proceed with intrathecal implant with the patient to start with morphine 5 mg/mL to start at 0.25 mg/day. Risks and benefits of the procedure have been explained to the patient. Patient would like to proceed with the procedure. Patient has been instructed to contact the clinic with any concerns before the next appointment. Dr. Stewart has reviewed this note and agrees with this plan of care. This note was dictated using voice recognition software and make contain errors or omissions. [facility] History I have reviewed the patient's past medical history: Yes Medical History: Reports:: Chronic Obstructive Pulmonary Disease (COPD), Hepatitis, Hypertension, Kidney Stones Denies:: Cancer, Diabetes Mellitus Type 1, Diabetes Mellitus Type 2, MRSA, Seizures *Have you ever received a pneumonia vaccine?: No *Have you received a flu vaccine this season?: No Other Medical History: Reports: Arthritis, Other Other Surgeries: Yes: Cholecystectomy, Tubal Ligation, Other Amputation: No Fractures: No - *Social History Smoking Status: Current every day smoker Tobacco Type: cigarettes # Packs/Day (cigarettes): 1 #Yrs smoked (if former smoker): 30 Alcohol Intake: never Substance Use T
== END ==
PROVIDERS: Visit Provider Clinical Nurse Specialist Family Health
DX: M51.16 Intervertebral disc disorders with radiculopathy, lumbar region (principal); M54.2 Cervicalgia; G89.29 Other chronic pain
CPT/HCPCS: 99212; G0463

== ENCOUNTER 2021-09-04 13:52 | Emergency (ER) | payer BC, SELFPAY ==
[2021-09-04 14:05] VITALS: BP 138/52; PULSE 69; RESP 18; TEMP 36.7; O2SAT 99; BMI 47.3
[2021-09-04 14:40] VITALS: BP 138/52; PULSE 69; RESP 18; TEMP 36.7; O2SAT 99; BMI 47.2
--- NOTE | 2021-09-04 14:55 | XR_ITS ---
PROCEDURE: XR CHEST 2V CLINICAL HISTORY: COUGH COMPARISON: CR CHEST from 11/30/[address] CHEST WITH CONTRAST from 12/15/2020 FINDINGS: The cardiomediastinal silhouette and pulmonary vascularity are within normal limits. The lungs are clear without infiltrates, suspicious nodules, or pleural effusions. Degenerative changes thoracic spine IMPRESSION: No acute findings. Dictated by: Andres Freedman MD 09/04/2021 15:24 Andres Freedman MD in [place] 09/04/2021 15:24
--- NOTE | 2021-09-04 15:04 | HMH.EDUTC ---
[facility] Disposition Clinical Impression: Bronchitis Disposition: Home, Self-Care Condition on Discharge: Good Instructions: Acute Bronchitis, Azithromycin, Prednisone Additional Instructions: ? Start antibiotic today. Be sure to complete entire prescription even if feeling better ? Monitor temp. Tylenol every 4 hours as needed and / or ibuprofen every 6 hours as needed ( As long as your primary care physician has told you that it ok to take both. For fever/aches/pains ER if no less than 101 despite Tylenol or Motrin ? Humidifier/vaporizer or hot steamy shower ? Inhaler every 4-6 hours as needed like we discussed. If unsure how to use it, ask pharmacist to demonstrate how. Should help open airways and improve cough, wheezing, and shortness of breath *Tessalon Perles will not cause drowsiness but use at bedtime to help stop cough so that you may get some rest. *Start steroid today. Helps with inflammation therefore, cough and wheezing. Follow directions on the package. Reviewed side effects. Patient reports taking them before. Follow up IMMEDIATELY for new or worsening of symptoms OR no noticeable improvement over the next 48-72 hours. 911 immediately for any life threatening symptoms such as chest pain or difficulty breathing Prescriptions: Benzonatate [Benzonatate 100mg cap] 100 mg PO Q8HP PRN #30 cap PRN Reason: Cough Transmission Status: Pending to [facility] predniSONE [Prednisone 20mg Tab] 20 mg PO BID 5 Days #10 tab Transmission Status: Pending to [facility] Azithromycin [Z-José Manuel 250mg Tab] 250 mg PO DIRECTED #6 tab Transmission Status: Pending to [facility] Referrals: Matt Arredondo MD [Primary Care Provider] - Medical Decision Making - Sarkis Inquiry Pt receiving controlled substance: No Sarkis was queried for this patient: No Vital Signs: 09/04/21 14:05 09/04/21 14:40 Temperature 98.1 F 98.1 F Temperature Source Oral Oral Pulse Rate [Left Radial] 69 69 Respiratory Rate 18 18 Blood Pressure [Right Arm] 138/52 L 138/52 L Blood Pressure Mean [Right Arm] 80 80 Blood Pressure Source [Right Arm] Automatic Cuff Automatic Cuff Blood Pressure Position [Right Arm] Sitting Sitting 02 Sat by Pulse Oximetry 99 99 Oxygen Delivery Method Room Air Room Air - Radiology Data #1 Image(s): Chest Image Reviewed: Yes I have reviewed radiologist's interpretation No acute findings. Medical Decision Narrative: Patient state that she has taken both Azithromycin and Prednisone in the past without complications or interactions [facility] HPI - General Stated complaint: possible bronchitis or pneumonia Time Seen by Provider: 09/04/21 15:04 Mode of Arrival: Ambulatory Source of Information: Patient Limitations: No Limitations Description of Symptoms (Recalled from Triage Doc. by RN): PATIENT C/O COUGH, WHEEZING, CONGESTION, AND BACK PAIN THAT RADIATES AROUND TO FRONT X 4-5 DAYS HEENT Symptoms (Recalled from RN notes): Yes Resp Symptoms (Recalled from RN notes): Yes Skin Symptoms (Recalled from RN notes): No MS Symptoms (Recalled from RN notes): Yes Functional Status (Recalled from RN notes): WNL - History of Present Illness Provider Complaint: Patient states that she has been having cough, chest congestion and pain in her back when she coughs States that she gets bronchitis and pneumonia around this time every year States that she has inhaler at home and did help some with her wheezing States that today she was still having cough and nasal congestion so she came in to get checked to make sure she didnt have pneumonia - Related Data Home Medications Medication Instructions Recorded Confirmed ibuprofen 200 mg tablet 200 mg PO Q6H PRN 03/15/21 07/17/21 loratadine 10 mg tablet 10 mg PO DAILY 03/15/21 07/17/21 montelukast 10 mg tablet 10 mg PO DAILY tab 04/18/21 07/17/21 ferrous sulfate 142 mg (45 mg 142 mg PO DAILY 05/03/21 07/17/21 iron) tablet,extended release hydralazin
[2021-09-04 16:10] VITALS: BP 138/52; PULSE 69; RESP 18; TEMP 36.7; O2SAT 99
== END 2021-09-04 16:15 | disposition home or self-care (01) ==
PROVIDERS: Emergency Provider Nurse Practitioner; PCP Family Medicine
DX: J44.0 Chronic obstructive pulmonary disease with (acute) lower respiratory infection (principal); J20.9 Acute bronchitis, unspecified; I10 Essential (primary) hypertension; Z20.822 Contact with and (suspected) exposure to COVID-19; F17.210 Nicotine dependence, cigarettes, uncomplicated
CPT/HCPCS: 71046; 99202; C9803; G0463; U0003; U0005

== ENCOUNTER → 2021-09-11 12:12 | Outpatient (CLI) | payer BC, SELFPAY ==
[2021-09-11 12:34] LABS: Basophils # 0.2 K/mm3 (0-0.2); Basophils % 1.2 % (0.1-2.0); Eosinophils # 0.3 K/mm3 (0.0-0.4); Eosinophils % 2.3 % (0.1-12.0); Hematocrit 43.4 % (37.0-47.0); Hemoglobin 13.9 g/dL (12.2-16.2); Lymphocytes # 3.8 K/mm3 (0.7-4.5); Lymphocytes % 29.3 % (10-50); Mean Corpuscular HGB Conc 32.1 g/dL (31.8-35.4); Mean Corpuscular Hemoglobin 26.6 pg (27.0-31.2); Mean Corpuscular Volume 82.9 fl (81-99); Monocytes # 0.5 K/mm3 (0.1-1.0); Monocytes % 3.9 % (1.7-9.3); Neutrophils # 8.2 K/mm3 (1.8-7.8); Neutrophils % 63.2 % (37.0-80.0); Platelet Count 436 K/mm3 (142-424); Red Blood Count 5.23 M/mm3 (4.20-5.40); Red Cell Distribution Width 14.2 % (11.5-17.5); White Blood Count 12.9 K/mm3 (4.8-10.8)
[2021-09-11 13:07] LABS: Anion Gap 10.8 mEq/L (5-15); Blood Urea Nitrogen 12 mg/dl (7-17); Calcium 9.2 mg/dl (8.4-10.2); Carbon Dioxide 27 mmol/L (22.0-30.0); Chloride 101 mmol/L (98-107); Estimated Glomerular Filt Rate 133 ml/min (>60); GFR (African American) 161 ML/MIN (>60); Glucose 244 mg/dl (74-100); Potassium 3.8 mmoL/L (3.5-5.1); Sodium 135 mmol/L (136-145)
[2021-09-11 13:26] LABS: Barbiturates Screen,Urine Negative ng/ml (<200)
[2021-09-11 13:27] LABS: Amphetamine/Metha Screen,Urine Negative ng/ml (<1000); Benzodiazepines Screen,Urine Negative ng/ml (<200)
[2021-09-11 13:28] LABS: Cannabinoid Screen,Urine Negative ng/ml (<50)
[2021-09-11 13:29] LABS: Cocaine Screen,Urine Negative ng/ml (<300); Methadone Screen,Urine Negative ng/ml (<300)
[2021-09-11 13:30] LABS: Opiate Screen,Urine Negative ng/ml (<300)
[2021-09-11 13:31] LABS: Phencyclidine Screen,Urine Negative ng/ml (<25)
== END ==
PROVIDERS: Visit Provider Anesthesiology
DX: Z01.812 Encounter for preprocedural laboratory examination (principal); Z11.52 Encounter for screening for COVID-19
CPT/HCPCS: 36415; 80048; 80305; 85025; C9803; U0003; U0005

== ENCOUNTER 2021-09-13 06:45 | Day surgery (SDC) | payer BC, SELFPAY ==
[2021-09-05 13:53] VITALS: BMI 47.3
[2021-09-13] VITALS (7 sets, daily range): BP systolic 131–141; BP diastolic 59–77; PULSE 68–101; RESP 18; TEMP 36.7–36.9; O2SAT 94–98
[2021-09-13 08:46] LABS: Urine Pregnancy, HCG Qual. Negative (Negative)
--- NOTE | 2021-09-13 10:39 | P.PN_ITS ---
[facility] Anesthesia Checklist - Patient Identification Patient Identification: Arm Band - Structural Data Admitted From: Home Planned Operative Procedure/s: Intrathecal Pain Pump Catheter and Generator Placement Consent for Planned Operative Procedure(s) Verified: Yes Verified Documents: Surgical Consent, History and Physical - NPO Status Verified Time NPO: 00:00 - Additional verifications Anesthesia Reactions: Yes (n/v) Hx Blood Transfusions: No Blood Transfusion Reaction: No - Airway Assessment C-Spine Mobility Assessed: Yes (mp2) TMJ Mobility Assessed: Yes Dentition: Good Dentition - Neurological Assessment Level of Consciousness: Awake, Alert - Anesthesia Plan Anesthesia Risk discussed: Yes Anesthesia Plan: Verified ASA Class: III Anesthesia Type: MAC [facility] History I have reviewed the patient's past medical history: Yes Medical History: Reports:: Chronic Obstructive Pulmonary Disease (COPD), Hepatitis, Hypertension, Kidney Stones Denies:: Cancer, Diabetes Mellitus Type 1, Diabetes Mellitus Type 2, Internal Pacemaker, MRSA, Seizures *Have you ever received a pneumonia vaccine?: No *Have you received a flu vaccine this season?: No Other Medical History: Reports: Arthritis, Other. Denies: Blood Transfusion Reaction Anesthesia experience/problems:: nac Other Surgeries: Yes: Cholecystectomy, Tubal Ligation, Other. No: Pacemaker Amputation: No Fractures: No - *Social History Last grade of school completed: GED Smoking Status: Current every day smoker Tobacco Type: cigarettes # Packs/Day (cigarettes): 1 #Yrs smoked (if former smoker): 30 Alcohol Intake: never Substance Use Type: former substance user, opiates, methamphetamine *Occupational Status:: other Housing: house Household Members: spouse *Travel in the last 8 weeks: None Family Hx:: Coronary Artery Disease, Hyperlipidemia, Hypertension, Stroke
--- NOTE | 2021-09-13 10:42 | HMH.OPNOTE ---
Date of procedure: 09/13/21 Pre-op Diagnosis:: Degenerative disc disease of lumbar spine with radiculopathy Post-op Diagnosis:: Same Procedure performed:: Placement of pain pump generator Surgeon:: Leonard Navarrete MD [employer] OPERATOR:: Dwayne Strange, Daniel Scherer, Agustín Hanks, Fredy Silva, Blair Awan, Jaylan Roman, Other Anesthesia: MAC Estimated blood loss (mL): 10 Operative findings:: Not applicable Operative note:: Once adequate IV sedation was obtained the patient was placed prone on the operating table and her back and flank regions were prepped and draped in sterile fashion. Paraspinal incision was made by Dr. Stewart there which an intrathecal catheter was passed into the intrathecal space to the area desired by Dr. Stewart. Catheter sutured to the underlying paraspinal fascia with fixation devices and 2-0 Prolene suture. Right flank incision was made orders made for pocket for placement of the generator. Utilizing tunneling device the catheter was passed from the paraspinal incision to the pocket incision. Catheter connected to the pump and placed in the pocket. CSF was aspirated noting patency of the system. Both pockets irrigated with antibiotic solution. The subcutaneous tissues closed with 2-0 Vicryl and skin closed which is 4-0 nylon. Wound VAC dressings and a binder applied to the wound. The patient taught procedure well and was taken to recovery in stable condition. Upon recovery the patient will be discharged home and will follow up in 1 week for removal of the wound VAC system in 2 weeks for rechecking of the wound and removal of the stitches. Antibiotics x1 week per protocol. The patient tolerated the procedure well. Condition: stable Disposition: PACU Complications:: None
--- NOTE | 2021-09-13 12:29 | P.OP_ITS ---
Date of procedure: 09/13/21 Pre-op Diagnosis:: Degenerative disc disease of lumbar spine with lumbar radiculopathy symptoms and postlaminectomy syndrome lumbar spine Post-op Diagnosis:: Same Procedure performed:: Intrathecal catheter placement with tunneling for permanent intrathecal pain pump Surgeon:: Reza Stewart MD RESEARCH AND DEVELOPMENT SCIENTIST:: Agustín Hanks Anesthesia: MAC Estimated blood loss (mL): 5 Clinical Note:: Patient is a pleasant 46-year-old white female who we are treating for low back pain with lumbar radiculopathy symptoms as well as postlaminectomy syndrome. She has done very well with intrathecal pump trial and she has had a successful psychological evaluation. She has failed all previous conservative therapies including injections, oral medications, surgery and she is not a candidate for any further surgery. She was 80 to 90% better after the trial and much more functional. She presents for permanent placement of intrathecal pain pump today . Operative findings:: None Operative note:: Informed consent was obtained and the risk and benefits of the procedure were explained to the patient. Patient was taken the operating room placed prone on the procedure table. She was prepped and draped in sterile fashion. C-arm fluoroscopy was used to view the lumbar spine. The skin and subcutaneous tissues adjacent to the spine were anesthetized using lidocaine. I made an incision and dissected down to the lumbar paraspinous fascia. A 15-gauge spinal needle was inserted and advanced into the L4-L5 interspace until clear CSF was obtained. After this intrathecal catheter was inserted and advanced very easily to the T12 vertebral body. The stylette of the catheter and the needle were withdrawn. The catheter was secured to the fascia with 2 anchoring devices and 2-0 Prolene. I prepared the pump with 20 mL of intrathecal morphine 5 mg/mL while Dr. Navarrete prepared the pump pocket. I tunneled the catheter from the back to the pump pocket and attached catheter to the pump. We were able to freely withdraw clear CSF through the side-port of the pump. Both incisions were irrigated with bacitracin solution. Both incisions were then closed with 2-0 Vicryl followed by 4-0 nylon. A wound VAC was placed over both incisions. The patient was placed in an abdominal binder and taken recovery in stable condition. The pump was interrogated and started at 0.25 mg/day. Patient tolerated the procedure well with no complications. Patient was discharged home neurologically intact with good relief of pain symptoms. We will follow-up with this patient in 1 week for wound check and reprogramming. We will follow-up in 2 weeks for suture removal. If she has any problems or q uestions she is to call us back in the pain clinic. Condition: stable Disposition: PACU Complications:: None
[2022-06-14 10:55] LABS: POC Glucose,Bedside 208 (70-110)
== END 2021-09-13 12:30 | disposition home or self-care (01) ==
LOC: OR 06:46
PROVIDERS: PCP Family Medicine; Visit Provider Anesthesiology
PROC: (CPT 62350; principal; 2021-09-13 09:00)
DX: M51.16 Intervertebral disc disorders with radiculopathy, lumbar region (principal); M96.1 Postlaminectomy syndrome, not elsewhere classified; J44.9 Chronic obstructive pulmonary disease, unspecified; I10 Essential (primary) hypertension; K75.9 Inflammatory liver disease, unspecified; Z87.442 Personal history of urinary calculi; Z82.3 Family history of stroke; Z82.49 Family history of ischemic heart disease and other diseases of the circulatory system; Z83.438 Family history of other disorder of lipoprotein metabolism and other lipidemia; Z72.0 Tobacco use; F11.11 Opioid abuse, in remission; F15.21 Other stimulant dependence, in remission
CPT/HCPCS: 62350; 62362; 81025; 82962; 94640; 96374; C1755; C1772; J2704; J3370

== ENCOUNTER → 2021-09-19 09:46 | Outpatient (POV) | payer BC, SELFPAY ==
[2021-09-19 10:14] VITALS: BP 118/82; PULSE 86; RESP 18; O2SAT 98; BMI 47.3
--- NOTE | 2021-09-19 10:35 | HMH.PMPROC ---
- Procedure Date: 09/19/21 Time: 10:35 Anesthesiologist:: Judy Wright APRN Complications:: None Pre-procedure Diagnosis:: Degenerative disc disease lumbar spine with lumbar radiculopathy symptoms, chronic back pain Post-procedure Diagnosis:: Same Indications for Procedure:: Patient is a 46-year-old white female who presents today for intrathecal pain pump adjustment. She did have her intrathecal pump implanted recently. She contacted the clinic yesterday with concerns of bleeding at the incision site. Photos were sent to the provider regarding the incision from a family member. She had scant amount of bleeding at the lower portion of the incision. The sutures are intact and appropriate. She is here today and rates her pain a 5 out of 10. She is having continued pain in her low back area with burning sensation with prolonged standing. The patient is continuing to have bleeding at the lower portion of the catheter incision site. We will glue the area today and apply Steri-Strips. She is currently on morphine at 0.25 mg/day and denies any side effects. We will set up the patient's PTC device today as well. Physical exam General: Alert and oriented x3, no acute distress, pleasant and cooperative Lungs: Respirations even and unlabored, symmetrical chest expansion Eyes: PERRL Musculoskeletal: Flexion and extension of lumbar [spine] somewhat guarded secondary to pain, [antalgic gait noted] Neurological: Speech clear, no gross sensory deficit Skin: Incision well approximated, no redness, no edema noted set. Scant amount of bloody drainage noted to lower aspect of catheter incision site. Sutures are intact. Procedure Details:: Informed consent was obtained and the risk and benefits of the procedure were explained to the patient. Patient was taken to the procedure room where noninvasive monitoring was placed including noninvasive blood pressure cuff and pulse oximeter. Patient's pump was interrogated and was reprogrammed to morphine at 0.28 mg/day, PTC started at 0.02 mg up to 4 times daily. She was instructed on use of PTC device today.. The patient tolerated the procedure well with no complications. Plan and Disposition:: Incision was glued with Steri-Strips applied. Incision is well approximated without redness or edema. She is continuing to wear her abdominal binder. We did increase her today and we did start her PTC device. Education was given to the patient regarding the PTC device. We will plan to follow-up with her in 2 weeks for suture removal. We will likely need to increase the patient again at that time. ORT is low risk. Patient has signed and completed a pain management agreement/contract today. Patient has been instructed to contact the clinic with any concerns before the next appointment. Dr. Stewart has reviewed this note and agrees with this plan of care. This note was dictated using voice recognition software and make contain errors or omissions.
== END ==
PROVIDERS: Visit Provider Clinical Nurse Specialist Family Health
DX: M51.16 Intervertebral disc disorders with radiculopathy, lumbar region (principal); G89.29 Other chronic pain
CPT/HCPCS: 99212; G0463

== ENCOUNTER → 2021-10-03 08:45 | Outpatient (POV) | payer BC, SELFPAY ==
--- NOTE | 2021-10-03 09:04 | P.PCN_ITS ---
- Procedure Date: 10/03/21 Time: 09:04 Anesthesiologist:: Judy Wright APRN Complications:: None Pre-procedure Diagnosis:: Degenerative disc disease lumbar spine with lumbar radiculopathy symptoms Post-procedure Diagnosis:: Same Indications for Procedure:: Patient is a 46-year-old white female who presents today for intrathecal pain pump adjustment and for suture removal. The patient was seen on 09/19/2021. At that time she was noted to have scant amount of bleeding to the lower portion of incision. She does continue to have some drainage which is a serosanguineous drainage from the incision. Partial sutures will be removed today. The area for which she is continuing to drain, we will keep sutures in at this time. We will also glue the incision. There is no redness or edema noted at the incision site. The incision is well approximated. She is currently on morphine at 0.28 mg/day and denies any side effects. She does report a history of constipation prior to implant of intrathecal pump. She has been advised to begin taking MiraLAX as well as a stool softener routinely to prevent constipation. Physical exam General: Alert and oriented x3, no acute distress, pleasant and cooperative Lungs: Respirations even and unlabored, symmetrical chest expansion Eyes: PERRL Musculoskeletal: Flexion and extension of lumbar [spine] somewhat guarded secondary to pain, [antalgic gait noted] Neurological: Speech clear, no gross sensory deficit Procedure Details:: Informed consent was obtained and the risk and benefits of the procedure were explained to the patient. Patient was taken to the procedure room where noninvasive monitoring was placed including noninvasive blood pressure cuff and pulse oximeter. Patient's pump was interrogated and was reprogrammed to morphine at 0.32 mg/day. The patient tolerated the procedure well with no complications. Plan and Disposition:: Incision was glued today. Sutures were left intact to the distal portion of incision. We will see the patient back in the clinic in 1 week for suture removal. ORT is minimal risk. Patient has signed and completed a pain ma nagement agreement/contract today. Risks and benefits of the medication have been explained in detail to the patient. The patient does understand the risk of dependence on the medication when given over a prolonged period. Patient has been advised of risks of oversedation with the prescribed medication. Narcan has been offered to the paitent in the event of oversedation. Patient has been advised that a family member should also be educated regarding administration of Narcan. The patient has been advised to consult with his/her primary care provider and pharmacist regarding drug-drug interaction of medications currently prescribed. Patient has been prescribed a controlled substance after being counseled on the medication, medication safety, and possible side effects. SARY report has been obtained and reviewed prior to prescription and found to be appropriate. Opioid contract was reviewed and signed by the patient, and that they have agreed to all of the terms set forth by our compliance program. Patient has been instructed to contact the clinic with any concerns before the next appointment. Dr. Stewart has reviewed this note and agrees with this plan of care. This note was dictated using voice recognition software and make contain errors or omissions.
[2021-10-03 09:21] VITALS: BP 172/85; PULSE 98; RESP 18; O2SAT 95; BMI 47.3
== END ==
PROVIDERS: Visit Provider Clinical Nurse Specialist Family Health
DX: M51.16 Intervertebral disc disorders with radiculopathy, lumbar region (principal); Z45.1 Encounter for adjustment and management of infusion pump
CPT/HCPCS: 62368; 99212; G0463

== ENCOUNTER → 2021-10-10 09:56 | Outpatient (POV) | payer BC, SELFPAY ==
--- NOTE | 2021-10-10 10:34 | HMH.PMPROC ---
- Procedure Date: 10/10/21 Time: 10:34 Anesthesiologist:: Judy Wright APRN Complications:: None Pre-procedure Diagnosis:: Degenerative disc disease lumbar spine with lumbar radiculopathy Post-procedure Diagnosis:: Same Indications for Procedure:: Patient is a 46-year-old white female who presents today for intrathecal pain pump adjustment. She is continuing to have significant into her low back. She does not. She rates her pain a 5 out of 10. She is also continuing to have serosanguineous drainage from her incision. Mid incision does have suture still intact with drainage coming from this area. She denies any pain from the incisional area, but he is having a burning sensation to the incisional site. She does have a history of constipation and is currently taking an [id number] regimen. She says that she has a burning sensation with voiding. She has been advised to contact primary care provider for possible UTI work-up. She denies fever, Physical exam General: Alert and oriented x3, no acute distress, pleasant and cooperative Lungs: Respirations even and unlabored, symmetrical chest expansion Eyes: PERRL Musculoskeletal: Flexion and extension of lumbar [spine] somewhat guarded secondary to pain, [antalgic gait noted] Neurological: Speech clear, no gross sensory deficit Skin: Incision with serosanguineous drainage from mid incision. No redness, no edema at incision site, mid incision with sutures medial aspect and lateral aspect of incision without sutures?healing without complication Procedure Details:: Informed consent was obtained and the risk and benefits of the procedure were explained to the patient. Patient was taken to the procedure room where noninvasive monitoring was placed including noninvasive blood pressure cuff and pulse oximeter. Patient's pump was interrogated and was reprogrammed to morphine at 0.39 mg/day. The patient tolerated the procedure well with no complications. Plan and Disposition:: Patient was given a bolus of morphine at 0.1 mg. She was increased today. Incision was cleaned with new dressing applied to the area. We will see the patient back in the clinic at the next intrathecal refill. Patient has been instructed to contact the clinic with any concerns before the next appointment. Dr. Stewart has reviewed this note and agrees with this plan of care. This note was dictated using voice recognition software and make contain errors or omissions.
[2021-10-10 10:39] VITALS: BP 158/86; PULSE 111; RESP 20; TEMP 36.4; O2SAT 92; BMI 47.9
== END ==
PROVIDERS: Visit Provider Clinical Nurse Specialist Family Health
DX: M51.16 Intervertebral disc disorders with radiculopathy, lumbar region (principal); Z45.1 Encounter for adjustment and management of infusion pump
CPT/HCPCS: 62368

== ENCOUNTER 2021-10-16 17:10 | Emergency (ER) | payer BC, SELFPAY ==
--- NOTE | 2021-10-16 18:34 | HMH.EDGENADL ---
ED Disposition Condition on Discharge: Good - Critical Care Critical Care Time: No <Rusty Morris - Last Filed: 10/16/21 19:49> <Jaylan Begum - Last Filed: 10/17/21 01:14> Clinical Impression: Post-operative pain, Febrile illness, acute Headache Qualifiers: Headache type: unspecified Headache chronicity pattern: acute headache Intractability: not intractable Qualified Code(s): R51.9 - Headache, unspecified Disposition: Home, Self-Care Instructions: DI for Acute Pain -- Adult Additional Instructions: keep appt in am Referrals: Matt Arredondo MD [Primary Care Provider] - Attestation: On 10/16/21, the high probability of a clinically significant, sudden or life threatening deterioration of the following system(s) required my full and direct attention, intervention and personal management. The time I documented below is in addition to time spent performing reported procedures but includes the following listed in this critical care notation. Medical Decision Making - Medical Records Medical records reviewed: Yes: I reviewed the patient's medical records. - Sarkis Inquiry Pt receiving controlled substance: No <Rusty Morris - Last Filed: 10/16/21 19:49> - Lab Data Lab results reviewed: Yes: I reviewed the patient's lab results. Result diagrams: 10/16/21 20:30 10/16/21 20:30 - Radiology Data #1 Image(s): Chest Image Reviewed: Yes I have reviewed radiologist's interpretation Preliminary Findings: Normal/NAD - CT Data CT Scan: T-Spine, L-Spine Time Received: 01:[address] Reviewed: Yes: I have viewed the radiologist's interpretation Preliminary Findings: Abnormal (see report- no abscess ) <Jaylan Begum - Last Filed: 10/17/21 01:14> Vital Signs: 10/16/21 18:44 10/16/21 21:44 10/16/21 22:24 Temperature 99.9 F H 102.4 F H Temperature Source Oral Oral Pulse Rate 104 H Pulse Rate [Right Radial] 91 H Respiratory Rate 18 14 Blood Pressure 104/52 L Blood Pressure [Right Arm] 167/76 H Blood Pressure Mean [Right Arm] 106 Blood Pressure Source Automatic Cuff Blood Pressure Source [Right Arm] Automatic Cuff Blood Pressure Position Supine Blood Pressure Position [Right Arm] Sitting 02 Sat by Pulse Oximetry 95 96 Oxygen Delivery Method Room Air Room Air 10/16/21 23:00 10/17/21 00:22 Temperature 101 F H Temperature Source Oral Pulse Rate 99 H 92 H Pulse Rate [Right Radial] Respiratory Rate 14 14 Blood Pressure 112/59 L 96/53 L Blood Pressure [Right Arm] Blood Pressure Mean [Right Arm] Blood Pressure Source Automatic Cuff Blood Pressure Source [Right Arm] Blood Pressure Position Supine Supine Blood Pressure Position [Right Arm] 02 Sat by Pulse Oximetry 97 99 Oxygen Delivery Method Room Air - Lab Data Lab Results 10/16/21 20:30: Urine Color Yellow, Urine Appearance Clear, Urine pH 7.0, Ur Specific Staley 1.020, Urine Protein Negative, Urine Glucose (UA) 3+, Urine Ketones Negative, Urine Blood Negative, Urine Nitrate Negative, Urine Bilirubin Negative, Urine Urobilinogen 0.2, Ur Leukocyte Esterase Negative, Urine WBC 3-5, Ur Squamous Epith Cells 3-5, Urine Bacteria 1+ 10/16/21 20:30: WBC 18.1 H, RBC 5.31, Hgb 13.8, Hct 42.3, MCV 79.6 L, MCH 26.0 L, MCHC 32.7, RDW 13.9, Plt Count 412, MPV 7.6, Neut % (Auto) 82.8 H, Lymph % (Auto) 13.5, [place] % (Auto) 2.4, Eos % (Auto) 0.5, Baso % (Auto) 0.8, Neut # (Auto) 15.0 H, Lymph # (Auto) 2.5, [place] # (Auto) 0.4, Eos # (Auto) 0.1, Baso # (Auto) 0.2, Total Counted 100, Neutrophils % (Manual) 85 H, Lymphocytes % (Manual) 11, Monocytes % (Manual) 3, Eosinophils % (Manual) 1, Platelet Estimate Normal, Hypochromasia 1+ 10/16/21 20:30: Sodium 134 L, Potassium 3.8, Chloride 96 L, Carbon Dioxide 27, Anion Gap 14.8, BUN 7, Creatinine 0.70, Estimated Creat Clear 109, Estimated GFR 90, Est GFR ( Amer) 109, Glucose 291 H, Calcium 9.9, Total Bilirubin 0.6, AST 36, ALT 34, Alkaline Phosphatase 142 H, C-Reactive Protei
[2021-10-16 18:44] VITALS: BP 167/76; PULSE 91; RESP 18; TEMP 37.7; O2SAT 95; BMI 47.7
[2021-10-16 20:41] LABS: Microscopic, Urine URINE MICROSCOPIC (MICROSCOPIC)
[2021-10-16 20:44] LABS: Basophils # 0.2 K/mm3 (0-0.2); Basophils % 0.8 % (0.1-2.0); Eosinophils # 0.1 K/mm3 (0.0-0.4); Eosinophils % 0.5 % (0.1-12.0); Hematocrit 42.3 % (37.0-47.0); Hemoglobin 13.8 g/dL (12.2-16.2); Lymphocytes # 2.5 K/mm3 (0.7-4.5); Lymphocytes % 13.5 % (10-50); Mean Corpuscular HGB Conc 32.7 g/dL (31.8-35.4); Mean Corpuscular Volume 79.6 fl (81-99); Mean Platelet Volume 7.6 fl (7.4-10.4); Monocytes # 0.4 K/mm3 (0.1-1.0); Monocytes % 2.4 % (1.7-9.3); Neutrophils % 82.8 % (37.0-80.0); Platelet Count 412 K/mm3 (142-424); Red Blood Count 5.31 M/mm3 (4.20-5.40); Red Cell Distribution Width 13.9 % (11.5-17.5); White Blood Count 18.1 K/mm3 (4.8-10.8)
[2021-10-16 20:46] LABS: Appearance,Urine CLEAR (Clear); Bilirubin,Urine Negative (Negative); Blood, Urine Negative (Negative); Color,Urine YELLOW (Yellow); Glucose,Urine (UA) 3+ (Negative); Ketones,Urine Negative (Negative); Leukocyte Esterase,Urine Negative (Negative); Nitrate,Urine Negative (Negative); Protein,Urine Negative (Negative); Urobilinogen,Urine 0.2 EU/dl (0.2)
[2021-10-16 20:49] LABS: Alanine Aminotransferase 34 U/L (12-78); Alkaline Phosphatase 142 U/L (38-126); Aspartate Amino Transferase 36 U/L (14-36); Bilirubin,Total 0.6 mg/dl (0.2-1.3); Blood Urea Nitrogen 7 mg/dl (7-17); Calcium 9.9 mg/dl (8.4-10.2); Carbon Dioxide 27 mmol/L (22.0-30.0); Chloride 96 mmol/L (98-107); Creatinine Clearance Estimated 109 mL/min (50-200); Estimated Glomerular Filt Rate 90 ml/min (>60); GFR (African American) 109 ML/MIN (>60); Glucose 291 mg/dl (74-100); Lactic Acid 2.3 mmol/L (0.7-2.1); Sodium 134 mmol/L (136-145)
[2021-10-16 20:50] LABS: Albumin Level 4.7 g/dl (3.5-5.0); Albumin/Globulin Ratio 1.3 (1.1-1.8); Anion Gap 14.8 mEq/L (5-15); Globulin 3.5 g/dL (1.3-3.2); Potassium 3.8 mmoL/L (3.5-5.1); Total Protein,Serum 8.2 g/dl (6.3-8.2)
[2021-10-16 20:52] LABS: MANUAL DIFFERENTIAL MANUAL DIFFERENTIAL (MANUAL DIFF)
[2021-10-16 20:55] LABS: C-Reactive Protein 76.6 mg/L (0-4)
[2021-10-16 21:08] LABS: Erythrocyte Sedimentation Rate 21 mm/hr (0-20)
[2021-10-16 21:09] LABS: Procalcitonin 0.074 ng/mL (0.0-2.0)
[2021-10-16 21:21] LABS: Bacteria,Urine 1+ /lpf
[2021-10-16 21:44] VITALS: TEMP 39.1
--- NOTE | 2021-10-16 21:44 | CT_ITS ---
PROCEDURE INFORMATION: Exam: CT Lumbar Spine With Contrast Exam date and time: 10/16/2021 9:44 PM Age: 46 years old Clinical indication: Low back pain; Prior surgery; Surgery date: 1-6 months; Surgery type: Pain pump x1 month. Painful/red around sutures TECHNIQUE: Imaging protocol: Computed tomography images of the lumbar spine with intravenous contrast. Radiation optimization: All CT scans at this facility use at least one of these dose optimization techniques: automated exposure control; mA and/or kV adjustment per patient size (includes targeted exams where dose is matched to clinical indication); or iterative reconstruction. Contrast material: ISOVUE; Contrast volume: 75 ml; Contrast route: IV; COMPARISON: MR LUMBAR SPINE WO CON 05/23/2021 5:29 PM FINDINGS: Tubes, catheters and devices: Spinal stimulator wire projecting into the spinal canal. 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 No acute fracture or dislocation. Discs/Spinal canal/Neural foramina: Degenerative changes of the lumbosacral spine most prominent at L5-S1 where there is a partially calcified disc bulge and facet arthropathy causing bilateral foraminal narrowing which is not significantly changed. Soft tissues: Electronic device within the right flank subcutaneous soft tissues with minimal adjacent stranding which is difficult to evaluate secondary to adjacent streak artifact. No large drainable fluid collection is visualized. IMPRESSION: Electronic device within the right flank subcutaneous soft tissues with minimal adjacent stranding which is difficult to evaluate secondary to adjacent streak artifact. Other findings above.
--- NOTE | 2021-10-16 21:46 | XR_ITS ---
PROCEDURE INFORMATION: Exam: XR Chest Exam date and time: 10/16/2021 9:46 PM Age: 46 years old Clinical indication: Screening exam; Other screening; Patient HX: Infection TECHNIQUE: Imaging protocol: XR of the chest. Views: 2 views. COMPARISON: CR XR CHEST 2V 09/04/2021 2:56 PM FINDINGS: Lungs: Unremarkable. No consolidation. Pleural spaces: Unremarkable. No pleural effusion. No pneumothorax. Heart/Mediastinum: Unremarkable. No cardiomegaly. Bones/joints: Unremarkable. IMPRESSION: No acute findings.
--- NOTE | 2021-10-16 21:52 | CT_ITS ---
PROCEDURE INFORMATION: Exam: CT Thoracic Spine With Contrast Exam date and time: 10/16/2021 9:52 PM Age: 46 years old Clinical indication: Pain in thoracic spine; Prior surgery; Surgery date: 1-6 months; Surgery type: Pain pump x1 month TECHNIQUE: Imaging protocol: Computed tomography images of the thoracic spine with intravenous contrast. Radiation optimization: All CT scans at this facility use at least one of these dose optimization techniques: automated exposure control; mA and/or kV adjustment per patient size (includes targeted exams where dose is matched to clinical indication); or iterative reconstruction. Contrast material: ISOVUE; Contrast volume: 75 ml; Contrast route: IV; COMPARISON: MR THORACIC SPINE WO CON 07/10/2021 5:07 PM FINDINGS: Vertebrae: Mild scoliosis. No acute fracture. Soft tissues: Partially visualized spinal stimulator wire within the lumbar spinal canal. Liver: Diffuse low attenuation of the liver most likely secondary to fatty infiltration. IMPRESSION: No acute findings.
[2021-10-16 21:53] LABS: Coronavirus 19, PCR Not Detected (NotDetected); Influenza A, PCR Not Detected (NotDetected); Influenza B, PCR Not Detected (NotDetected)
[2021-10-16 22:09] LABS: Eosinophils % 1 % (0-3); Hypochromasia 1+; Lymphocytes % 11 % (10-50); Monocytes % 3 % (2-9); Neutrophils % 85 % (42-76); Platelet Estimate Normal; Total Cells Counted 100
--- NOTE | 2021-10-16 22:13 | PC.NURSE ---
update given to patients mother via phone call
--- NOTE | 2021-10-16 22:15 | PC.NURSE ---
patient back from CT
[2021-10-16 22:24] VITALS: BP 104/52; PULSE 104; RESP 14; O2SAT 96
[2021-10-16 23:00] VITALS: BP 112/59; BP 118/65; PULSE 102; PULSE 99; RESP 14; TEMP 38.3; O2SAT 97
--- NOTE | 2021-10-17 00:11 | PC.NURSE ---
patients updated on patient status
[2021-10-17 00:22] VITALS: BP 96/53; PULSE 92; RESP 14; O2SAT 99
--- NOTE | 2021-10-17 00:36 | PC.NURSE ---
Dr. Stewart paged, blanker operator left voice mail
[2021-10-17 00:40] LABS: Reflex Lactic Add Lactic Reflex
[2021-10-17 01:28] VITALS: BP 110/72; PULSE 88; RESP 19; TEMP 37; O2SAT 96
== END 2021-10-17 02:04 | disposition home or self-care (01) ==
PROVIDERS: Emergency Medicine; Emergency Provider Emergency Medicine; PCP Family Medicine
DX: R51.9 Headache, unspecified (principal); G89.18 Other acute postprocedural pain; R50.9 Fever, unspecified; F17.210 Nicotine dependence, cigarettes, uncomplicated; I10 Essential (primary) hypertension; J44.9 Chronic obstructive pulmonary disease, unspecified
CPT/HCPCS: 71046; 72129; 72132; 80053; 81001; 83605; 84145; 85007; 85025; 85651; 86140; 87040; 96365; 96366; 96375; 99284; C9803; J2405; J3370; Q9967; U0003; U0005

== ENCOUNTER → 2021-10-17 10:01 | Outpatient (POV) | payer BC, SELFPAY ==
[2021-10-17 10:29] VITALS: BP 174/90; PULSE 76; RESP 18; O2SAT 96; BMI 47.7
--- NOTE | 2021-10-17 11:42 | P.PCN_ITS ---
- Procedure Date: 10/17/21 Time: 11:43 Anesthesiologist:: Judy Wright APRN Complications:: None Pre-procedure Diagnosis:: Degenerative disc disease lumbar spine with lumbar radiculopathy symptoms Post-procedure Diagnosis:: Same Indications for Procedure:: Patient is a 46-year-old white female who presents today after going to the emergency room. She was seen in the ER on 10/16/2021. Patient says on arrival she had a temperature 102.9. She says that the pain was intense to her incision. She also reported to be having pus draining from the incision site. Patient was seen on 10/10/2021 in the clinic. Sutures were left intact to middle of incision due to continued drainage from this area. The drainage was serosanguineous. Today, the drainage is serous in nature. No pus is noted. Patient says she was given Tylenol to decrease her fever in the ER. She is having intense headaches and urinary hesitation as well. Dr. Begum did contact Dr. Stewart regarding the patient. She is currently on morphine at 0.39 mg/day. Dr. Begum did start the patient on clindamycin 300 mg 1 tablet p.o. 3 times daily for 10 days. He is here today for follow-up Physical exam General: Alert and oriented x3, no acute distress, pleasant and cooperative Lungs: Respirations even and unlabored, symmetrical chest expansion Eyes: PERRL Musculoskeletal: Flexion and extension of lumbar [spine] somewhat guarded secondary to pain, [antalgic gait noted] Neurological: Speech clear, no gross sensory deficit Skin: Sutures removed from incision. There is drainage noted. Scabbing noted to incision no redness noted no edema noted Procedure Details:: Informed consent was obtained and the risk and benefits of the procedure were explained to the patient. Patient was taken to the procedure room where noninvasive monitoring was placed including noninvasive blood pressure cuff and pulse oximeter. Patient's pump was interrogated and was reprogrammed to morp annie at 0.33 mg/day. The patient tolerated the procedure well with no complications. Plan and Disposition:: Dr. Stewart did review the incision. He does not feel that the area is infected at this time. Sutures were removed per his recommendation. Steri-Strips were applied to the area and glued. We will follow-up with the patient on to see if her headache and urinary hesitancy has decreased. We decreased her medication today to see if the symptoms improve. She is been advised to use great caution with the incision site. We do not want the area infected. She is also been advised to continue with her antibiotic regimen prescribed by Dr. Begum. She has been advised if it does become infected she will need to undergo explant. We will see the patient back in the clinic at the next intrathecal refill. Patient has been instructed to contact the clinic with any concerns before the next appointment. Dr. Stewart has reviewed this note and agrees with this plan of care. This note was dictated using voice recognition software and make contain errors or omissions.
--- NOTE | 2021-10-18 10:14 | PC.NURSE ---
Pt spouse called and notified staff that patient continues to have nausea/vomiting and a headache. Dr. Stewart notified of complaints ordered Zofran 8mg TID PRN N/V and for patient to be seen by PCP today. Notified patient who stated that patient has not started her antibiotics d/t vomiting. Spouse given directions on how to take Zofran and it's purpose. Also instructed spouse that patient needs to start antibiotics as prescribed. This principal technical writer called in Zofran 8mg TID PRN to Clinic pharmacy.
== END ==
PROVIDERS: Visit Provider Clinical Nurse Specialist Family Health
DX: G97.82 Other postprocedural complications and disorders of nervous system (principal); M51.16 Intervertebral disc disorders with radiculopathy, lumbar region; Z45.1 Encounter for adjustment and management of infusion pump; E66.9 Obesity, unspecified; Z68.42 Body mass index [BMI] 45.0-49.9, adult; E11.9 Type 2 diabetes mellitus without complications; R11.2 Nausea with vomiting, unspecified; E03.9 Hypothyroidism, unspecified; I10 Essential (primary) hypertension
CPT/HCPCS: 62368; 62370

== ENCOUNTER 2021-10-18 16:53 | Observation (INO) | payer BC, SELFPAY ==
[2021-10-18] VITALS (14 sets, daily range): BP systolic 148–177; BP diastolic 79–105; PULSE 63–94; RESP 18–22; TEMP 36.9–37.1; O2SAT 87–98; BMI 47.7; BMI 46.7
--- NOTE | 2021-10-18 17:51 | HMH.EDGENADL ---
ED Disposition Clinical Impression: Headache Qualifiers: Headache type: unspecified Headache chronicity pattern: acute headache Intractability: intractable Qualified Code(s): R51.9 - Headache, unspecified Leukocytosis Qualifiers: Leukocytosis type: unspecified Qualified Code(s): D72.829 - Elevated white blood cell count, unspecified Disposition: Admitted as Observation Condition on Discharge: Fair Referrals: Jaylan Begum MD [Primary Care Provider] - - Critical Care Critical Care Time: No Attestation: On 10/18/21, the high probability of a clinically significant, sudden or life threatening deterioration of the following system(s) required my full and direct attention, intervention and personal management. The time I documented below is in addition to time spent performing reported procedures but includes the following listed in this critical care notation. Medical Decision Making - Medical Records Medical records reviewed: Yes: I reviewed the patient's medical records. MR Comment: Reviewed emergency department note from 10/16/2021. It appears that she was given vancomycin in the emergency department. Current antibiotics appear to be cefdinir and clindamycin. - Sarkis Inquiry Pt receiving controlled substance: No Vital Signs: 10/18/21 17:23 10/18/21 17:30 10/18/21 18:00 Temperature 98.4 F Temperature Source Oral Pulse Rate 72 75 Pulse Rate [Left Brachial] 91 H Respiratory Rate 22 18 Blood Pressure 172/93 H 177/105 H Blood Pressure [Left Arm] 160/97 H Blood Pressure Mean [Left Arm] 118 Blood Pressure Source [Left Arm] Automatic Cuff Blood Pressure Position [Left Arm] Sitting 02 Sat by Pulse Oximetry 97 98 95 Oxygen Delivery Method Room Air Room Air Room Air - Lab Data Lab Results 10/18/21 17:37: WBC 14.9 H, RBC 4.70, Hgb 12.1 L, Hct 38.3, MCV 81.5, MCH 25.7 L, MCHC 31.5 L, RDW 14.1, Plt Count 355, MPV 7.7, Neut % (Auto) 85.0 H, Lymph % (Auto) 10.3, [place] % (Auto) 3.1, Eos % (Auto) 0.9, Baso % (Auto) 0.6, Neut # (Auto) 12.7 H, Lymph # (Auto) 1.6, [place] # (Auto) 0.5, Eos # (Auto) 0.1, Baso # (Auto) 0.1, Total Counted 100, Neutrophils % (Manual) 79 H, Band Neutrophils % 1.0, Lymphocytes % (Manual) 14, Monocytes % (Manual) 6, Platelet Estimate M, RBC Morphology Mp, ESR 50 H 10/18/21 17:37: Sodium 128 L, Potassium 3.9, Chloride 97 L, Carbon Dioxide 24, Anion Gap 10.9, BUN 6 L, Creatinine 0.50 L D, Estimated Creat Clear 152, Estimated GFR 133, Est GFR ( Amer) 161 D, Glucose 328 H, Calcium 9.0, Total Bilirubin 0.6, AST 30, ALT 28, Alkaline Phosphatase 120, C-Reactive Protein 93.9 H, Total Protein 7.5, Albumin 4.2, Globulin 3.3 H, Albumin/Globulin Ratio 1.3, Procalcitonin 0.071 10/18/21 18:15: SARS-CoV-2 (PCR) Not detected, Influenza A Untype (PCR) Not detected, Influenza Type B (PCR) Not detected 10/18/21 18:20: Lactate 1.2 10/18/21 18:50: Urine Color Yellow, Urine Appearance Clear, Urine pH 7.0, Ur Specific [place] 1.015, Urine Protein Trace, Urine Glucose (UA) 3+, Urine Ketones 1+, Urine Blood Trace-i, Urine Nitrate Negative, Urine Bilirubin Negative, Urine Urobilinogen 0.2, Ur Leukocyte Esterase Negative, Urine RBC Occasional, Urine WBC Occasional, Ur Squamous Epith Cells Occasional, Urine Bacteria Trace Result diagrams: 10/18/21 17:37 10/18/21 17:37 Orders (Tests/Meds): ED MEDICATIONS Generic Name Dose Route Start Last Admin Trade Name Freq PRN Reason Stop Dose Admin Clindamycin Phosphate 900 mg/ 106 mls @ 100 mls/hr 10/18/21 20:00 Sodium Chloride IV 11/01/21 19:59 Q8H MILY Vancomycin HCl 2,500 mg/ 500 mls @ 166 mls/hr 10/18/21 20:00 Sodium Chloride IV 10/18/21 23:00 ONCE ONE Vancomycin HCl 2,500 mg/ 500 mls @ 166 mls/hr 10/19/21 08:00 Sodium Chloride IV 11/02/21 07:59 Q12H MILY Miscellaneous 1 each 10/18/21 20:00 Vancomycin Consult Request * 11/17/21 19:59 CONSULT PHARMACY MILY Discontinued Medications Generic Name Dose Route S
[2021-10-18 18:00] LABS: Basophils # 0.1 K/mm3 (0-0.2); Basophils % 0.6 % (0.1-2.0); Eosinophils # 0.1 K/mm3 (0.0-0.4); Eosinophils % 0.9 % (0.1-12.0); Hematocrit 38.3 % (37.0-47.0); Hemoglobin 12.1 g/dL (12.2-16.2); Lymphocytes # 1.6 K/mm3 (0.7-4.5); Lymphocytes % 10.3 % (10-50); Mean Corpuscular HGB Conc 31.5 g/dL (31.8-35.4); Mean Corpuscular Hemoglobin 25.7 pg (27.0-31.2); Mean Corpuscular Volume 81.5 fl (81-99); Mean Platelet Volume 7.7 fl (7.4-10.4); Monocytes # 0.5 K/mm3 (0.1-1.0); Monocytes % 3.1 % (1.7-9.3); Neutrophils # 12.7 K/mm3 (1.8-7.8); Platelet Count 355 K/mm3 (142-424); Red Cell Distribution Width 14.1 % (11.5-17.5); White Blood Count 14.9 K/mm3 (4.8-10.8)
[2021-10-18 18:02] LABS: Chloride 97 mmol/L (98-107); Potassium 3.9 mmoL/L (3.5-5.1); Sodium 128 mmol/L (136-145)
[2021-10-18 18:05] LABS: Alanine Aminotransferase 28 U/L (12-78); Albumin Level 4.2 g/dl (3.5-5.0); Albumin/Globulin Ratio 1.3 (1.1-1.8); Alkaline Phosphatase 120 U/L (38-126); Anion Gap 10.9 mEq/L (5-15); Aspartate Amino Transferase 30 U/L (14-36); Bilirubin,Total 0.6 mg/dl (0.2-1.3); Blood Urea Nitrogen 6 mg/dl (7-17); Carbon Dioxide 24 mmol/L (22.0-30.0); Creatinine Clearance Estimated 152 mL/min (50-200); Estimated Glomerular Filt Rate 133 ml/min (>60); GFR (African American) 161 ML/MIN (>60); Globulin 3.3 g/dL (1.3-3.2); Total Protein,Serum 7.5 g/dl (6.3-8.2)
[2021-10-18 18:06] LABS: Glucose 328 mg/dl (74-100)
[2021-10-18 18:11] LABS: C-Reactive Protein 93.9 mg/L (0-4)
[2021-10-18 18:30] LABS: MANUAL DIFFERENTIAL MANUAL DIFFERENTIAL (MANUAL DIFF)
[2021-10-18 18:40] LABS: Coronavirus 19, PCR Not Detected (NotDetected); Influenza A, PCR Not Detected (NotDetected); Influenza B, PCR Not Detected (NotDetected)
[2021-10-18 18:48] LABS: Lactic Acid 1.2 mmol/L (0.7-2.1)
[2021-10-18 18:50] LABS: Procalcitonin 0.071 ng/mL (0.0-2.0)
[2021-10-18 18:56] LABS: Microscopic, Urine URINE MICROSCOPIC (MICROSCOPIC)
[2021-10-18 18:58] LABS: Erythrocyte Sedimentation Rate 50 mm/hr (0-20)
[2021-10-18 19:01] LABS: Appearance,Urine CLEAR (Clear); Bilirubin,Urine Negative (Negative); Blood, Urine TRACE-I (Negative); Color,Urine YELLOW (Yellow); Glucose,Urine (UA) 3+ (Negative); Ketones,Urine 1+ (Negative); Leukocyte Esterase,Urine Negative (Negative); Nitrate,Urine Negative (Negative); Protein,Urine TRACE (Negative); Specific Gravity, Urine 1.015 (1.005-1.030); Urobilinogen,Urine 0.2 EU/dl (0.2)
[2021-10-18 19:08] LABS: RBC,Urine Occasional #/hpf (0-3); WBC,Urine Occasional #/hpf (0-3)
[2021-10-18 19:09] LABS: Bacteria,Urine Trace /lpf; Squamous Epithelial Cell,Urine Occasional #/hpf (0-5)
[2021-10-18 19:13] LABS: Lymphocytes % 14 % (10-50); Monocytes % 6 % (2-9); Neutrophils % 79 % (42-76); Platelet Estimate M; RBC Morphology MP; Total Cells Counted 100
--- NOTE | 2021-10-18 19:24 | PC.NURSE ---
Paging professional skateboarder doctor for MD Shy at this time
--- NOTE | 2021-10-18 19:40 | PC.NURSE ---
Janet Mejia MD again
--- NOTE | 2021-10-18 19:51 | CT_ITS ---
PROCEDURE INFORMATION: Exam: CT Head Without Contrast Exam date and time: 10/18/2021 7:51 PM Age: 46 years old Clinical indication: Other: Headache TECHNIQUE: Imaging protocol: Computed tomography of the head without contrast. Radiation optimization: All CT scans at this facility use at least one of these dose optimization techniques: automated exposure control; mA and/or kV adjustment per patient size (includes targeted exams where dose is matched to clinical indication); or iterative reconstruction. COMPARISON: No relevant prior studies available. FINDINGS: Brain: No large territorial infarction. No hemorrhage. No mass effect or midline shift. Cerebral ventricles: No ventriculomegaly. Paranasal sinuses: No fluid levels. Mastoid air cells: Visualized mastoid air cells are well aerated. Bones/joints: No acute fracture. Soft tissues: No significant soft tissue abnormality. IMPRESSION: No acute intracranial abnormality.
--- NOTE | 2021-10-18 20:04 | PC.NURSE ---
I spoke with [facility] in regards to Vanc dosing. Herminio is going to place orders for first dose and continuing dose
--- NOTE | 2021-10-18 21:39 | PC.NURSE ---
PT ARRIVED TO FLOOR VIA W/C FROM ED W/STAFF @ [id number]
[2021-10-19] VITALS: BP 149/80; PULSE 78; RESP 18; TEMP 36.9; O2SAT 95
[2021-10-19 04:00] VITALS: BP 127/63; PULSE 59; RESP 16; TEMP 36.6; O2SAT 92
[2021-10-19 05:32] VITALS: BMI 47.5
[2021-10-19 07:04] LABS: Basophils # 0.1 K/mm3 (0-0.2); Basophils % 0.5 % (0.1-2.0); Chloride 104 mmol/L (98-107); Eosinophils # 0.2 K/mm3 (0.0-0.4); Eosinophils % 1.9 % (0.1-12.0); Hematocrit 35.6 % (37.0-47.0); Hemoglobin 11.3 g/dL (12.2-16.2); Lymphocytes # 2.8 K/mm3 (0.7-4.5); Lymphocytes % 23.7 % (10-50); Mean Corpuscular HGB Conc 31.9 g/dL (31.8-35.4); Mean Corpuscular Hemoglobin 25.9 pg (27.0-31.2); Mean Corpuscular Volume 81.3 fl (81-99); Mean Platelet Volume 8.2 fl (7.4-10.4); Monocytes # 0.5 K/mm3 (0.1-1.0); Monocytes % 4.3 % (1.7-9.3); Neutrophils # 8.1 K/mm3 (1.8-7.8); Neutrophils % 69.5 % (37.0-80.0); Platelet Count 343 K/mm3 (142-424); Potassium 3.5 mmoL/L (3.5-5.1); Red Blood Count 4.37 M/mm3 (4.20-5.40); Sodium 133 mmol/L (136-145); White Blood Count 11.6 K/mm3 (4.8-10.8)
[2021-10-19 07:07] LABS: Anion Gap 7.5 mEq/L (5-15); Blood Urea Nitrogen 9 mg/dl (7-17); Carbon Dioxide 25 mmol/L (22.0-30.0); Creatinine Clearance Estimated 127 mL/min (50-200); Estimated Glomerular Filt Rate 108 ml/min (>60); GFR (African American) 130 ML/MIN (>60)
[2021-10-19 07:08] LABS: Calcium 8.4 mg/dl (8.4-10.2); Glucose 268 mg/dl (74-100)
--- NOTE | 2021-10-19 07:56 | HMH.PHACONS ---
- Pharmacy Consult Date: 10/19/21 Time: 07:56 Referring provider: DR WALKER Reason for Consult:: VANCOMYCIN DOSING CONSULT Allergies and ADEs:: Allergies Allergy/AdvReac Type Severity Reaction Status Date / Time cephalexin [From Keflex] Allergy Unknown Verified 10/18/21 16:16 allergy reaction Penicillins Allergy Unknown Verified 10/18/21 16:16 allergy reaction Home Medications:: Home Medications Medication Instructions Recorded Confirmed Type ibuprofen 200 mg tablet 200 mg PO Q6H PRN 03/15/21 10/18/21 History ferrous sulfate 142 mg (45 mg 142 mg PO NEEDED PRN 05/03/21 10/18/21 History iron) tablet,extended release hydralazine 50 mg tablet 100 mg PO HS tab 05/31/21 10/18/21 History albuterol sulfate 90 mcg/actuation 2 puff INHALATION Q6H PRN #8.5 g 06/27/21 10/18/21 Rx aerosol inhaler Amlodipine Besylate/Benazepril 10 mg PO DAILY 07/05/21 10/18/21 History [Amlodipine-Benazepril 10-40 mg] carvediloL [Carvedilol 25mg Tab] 25 mg PO BID 07/05/21 10/18/21 History gabapentin 600 mg tablet 600 mg PO BID PRN #60 tab 07/17/21 10/18/21 Rx hydroxyzine pamoate 50 mg capsule 100 mg PO QHS PRN #60 cap 08/23/21 10/18/21 Rx Albuterol Sulfate [Proventil-HFA 1 - 2 puffs IH Q6HP PRN #1 each 09/04/21 10/18/21 Rx 90mcg/puff Inh] Naloxone HCl [Narcan] 4 mg NS ONCE PRN #1 ml 09/19/21 10/18/21 Rx Morphine Sulfate [Morphine 4mg/mL 0.3 mg IT CONT 10/10/21 10/18/21 History syringe] Desvenlafaxine Succinate 50 mg PO DAILY 10/16/21 10/18/21 History [Desvenlafaxine Succinate ER] Cefdinir [Omnicef 300mg Capsule] 300 mg PO BID 10/18/21 10/18/21 History Sertraline HCl [Zoloft 50mg tablet] 50 mg PO DAILY 10/18/21 10/18/21 History clindamycin HCL [Clindamycin HCl] 300 mg PO TID 10/18/21 10/18/21 History Height: 1.78 m Weight: 150.502 kg Laboratory Results:: Laboratory Results - last 24 hr 10/18/21 17:37: WBC 14.9 H, RBC 4.70, Hgb 12.1 L, Hct 38.3, MCV 81.5, MCH 25.7 L, MCHC 31.5 L, RDW 14.1, Plt Count 355, MPV 7.7, Neut % (Auto) 85.0 H, Lymph % (Auto) 10.3, [place] % (Auto) 3.1, Eos % (Auto) 0.9, Baso % (Auto) 0.6, Neut # (Auto) 12.7 H, Lymph # (Auto) 1.6, [place] # (Auto) 0.5, Eos # (Auto) 0.1, Baso # (Auto) 0.1, Total Counted 100, Neutrophils % (Manual) 79 H, Band Neutrophils % 1.0, Lymphocytes % (Manual) 14, Monocytes % (Manual) 6, Platelet Estimate M, RBC Morphology Mp, ESR 50 H 10/18/21 17:37: Sodium 128 L, Potassium 3.9, Chloride 97 L, Carbon Dioxide 24, Anion Gap 10.9, BUN 6 L, Creatinine 0.50 L D, Estimated Creat Clear 152, Estimated GFR 133, Est GFR ( Amer) 161 D, Glucose 328 H, Calcium 9.0, Total Bilirubin 0.6, AST 30, ALT 28, Alkaline Phosphatase 120, C-Reactive Protein 93.9 H, Total Protein 7.5, Albumin 4.2, Globulin 3.3 H, Albumin/Globulin Ratio 1.3, Procalcitonin 0.071 10/18/21 18:15: SARS-CoV-2 (PCR) Not detected, Influenza A Untype (PCR) Not detected, Influenza Type B (PCR) Not detected 10/18/21 18:20: Lactate 1.2 10/18/21 18:50: Urine Color Yellow, Urine Appearance Clear, Urine pH 7.0, Ur Specific [place] 1.015, Urine Protein Trace, Urine Glucose (UA) 3+, Urine Ketones 1+, Urine Blood Trace-i, Urine Nitrate Negative, Urine Bilirubin Negative, Urine Urobilinogen 0.2, Ur Leukocyte Esterase Negative, Urine RBC Occasional, Urine WBC Occasional, Ur Squamous Epith Cells Occasional, Urine Bacteria Trace 10/19/21 05:46: WBC 11.6 H, RBC 4.37, Hgb 11.3 L, Hct 35.6 L, MCV 81.3, MCH 25.9 L, MCHC 31.9, RDW 14.0, Plt Count 343, MPV 8.2, Neut % (Auto) 69.5, Lymph % (Auto) 23.7, [place] % (Auto) 4.3, Eos % (Auto) 1.9, Baso % (Auto) 0.5, Neut # (Auto) 8.1 H, Lymph # (Auto) 2.8, [place] # (Auto) 0.5, Eos # (Auto) 0.2, Baso # (Auto) 0.1 10/19/21 05:46: Sodium 133 L, Potassium 3.5, Chloride 104, Carbon Dioxide 25, Anion Gap 7.5, BUN 9 D, Creatinine 0.60, Estimated Creat Clear 127, Estimated GFR 108, Est GFR ( Amer) 130, Glucose 268 H, Calcium 8.4 Medical History: Reports:: Chronic Obstructive Pulmonary Disease (COPD)
[2021-10-19 08:00] VITALS: BP 128/66; PULSE 64; RESP 16; TEMP 36.4; O2SAT 92
--- NOTE | 2021-10-19 08:01 | HMH.PHAVTE ---
[facility] Pharmacy VTE Monitoring - Patient Demographics Admission date: 10/19/21 Report Date: 10/19/21 Time: 08:01 Allergies/Adverse Reactions: Patient Allergies cephalexin [From Keflex] Allergy (Verified 10/18/21 16:16) Unknown allergy reaction Penicillins Allergy (Verified 10/18/21 16:16) Unknown allergy reaction Height: 1.78 m Weight: 150.502 kg Patient Problems: Current Active Problems Headache (Acute) Leukocytosis (Acute) - VTE Risk Labs: VTE Related Lab Results Hgb 11.3 g/dL (12.2-16.2) L 10/19/21 05:46 Hct 35.6 % (37.0-47.0) L 10/19/21 05:46 Plt Count 343 K/mm3 (142-424) 10/19/21 05:46 BUN 9 mg/dl (7-17) D 10/19/21 05:46 Creatinine 0.60 mg/dl (0.52-1.04) 10/19/21 05:46 Estimated Creat Clear 127 mL/min (50-200) 10/19/21 05:46 Was VTE Risk Assessment Performed: Yes VTE Score: 5 VTE Risk Level: Low Risk Clinical Trial Participant: No - Prophylaxis VTE Prophylaxis Ordered?: Yes Types of VTE Prophylaxis: TEDS Knee High
--- NOTE | 2021-10-19 08:10 | HMH.PHAINT ---
home medication list verified using list from [facility]
--- NOTE | 2021-10-19 09:38 | HMH.HP ---
*Admission Date: 10/19/21 *Chief complaint: nausea and headache *History of present illness: Patient states she had a pain pump placed about 1 month ago. She had her dose of morphine via pump increased on 10/10/2021. She says a couple of days later, on , she got a severe migraine. She has never had a migraine before. Since then she has had a persistent headache, repetitive vomiting. She has had a fever off and on. She was seen in the emergency department here on 10/16/2021. She says she was started on an antibiotic for urinary tract infection. Seen at pain clinic yesterday and had some stitches removed. Pain pump dosage turned down. She has Steri-Strips in place. Today she also developed diarrhea and has had about 7 episodes of diarrhea. She has not seen any blood in the diarrhea. She has some slight abdominal pain. Denies cough or URI symptoms. Has some pain at her pump incision site. She followed up in her PCP office today and has had persistent symptoms, therefore advised to come to the emergency department for further treatment and evaluation. States she is unable to keep anything down, has only drank a few ounces of water today. Feels dehydrated. States she is unable to keep her medicines down including antibiotic. Denies any current urine symptoms. States that she was having trouble going and because of this her pain pump dosage was decreased yesterday. Denies dysuria. States she had a yeast infection vaginally after her surgery. CT brain was w/o acute process COATES this morning IVF going at 100 [facility] History Medical History: Reports:: Chronic Obstructive Pulmonary Disease (COPD), Hepatitis, Hypertension, Kidney Stones Denies:: Cancer, Diabetes Mellitus Type 1, Diabetes Mellitus Type 2, Internal Pacemaker, MRSA, Seizures *Have you ever received a pneumonia vaccine?: No *Have you received a flu vaccine this season?: No Other Medical History: Reports: Arthritis, Hypothyroidism, Other. Denies: Blood Transfusion Reaction Other Surgeries: Yes: No Previous Surgery, Cholecystectomy, Tubal Ligation, Other. No: Pacemaker Amputation: No Fractures: No - *Social History Last grade of school completed: GED Smoking Status: Current every day smoker Tobacco Type: cigarettes # Packs/Day (cigarettes): 1 #Yrs smoked (if former smoker): 30 Alcohol Intake: never Substance Use Type: methamphetamine *Occupational Status:: unemployed, other Housing: house Household Members: spouse *Travel in the last 8 weeks: None Family Hx:: Asthma, Heart Attack, Hyperlipidemia, Hypertension, Stroke, Substance abuse, Alcoholism Review of Systems - Constitutional Reports anorexia, Reports lack of energy - Eyes Denies change in vision - ENT Denies difficulty swallowing - *Cardiovascular Denies chest pain - *Respiratory Denies chest congestion - *Gastrointestinal Denies vomiting blood - *Genitourinary Reports painful urination - *Musculoskeletal Reports stiffness - Integumentary/Breasts Denies yellowing of the skin - *Neurologic Reports headache(s), Denies numbness, Denies weakness - Psychiatric Denies behavioral changes - Endocrine Denies cold intolerance - Hematologic/Lymphatic Denies easy bleeding, Denies easy bruising Meds Home Medications Medication Instructions Recorded Confirmed Type ibuprofen 200 mg tablet 200 mg PO Q6H PRN 03/15/21 10/18/21 History ferrous sulfate 142 mg (45 mg 142 mg PO NEEDED PRN 05/03/21 10/18/21 History iron) tablet,extended release hydralazine 50 mg tablet 100 mg PO TID tab 05/31/21 10/19/21 History Amlodipine Besylate/Benazepril 1 cap PO DAILY 07/05/21 10/19/21 History [Amlodipine-Benazepril 10-40 mg] carvediloL [Carvedilol 25mg Tab] 25 mg PO BID 07/05/21 10/18/21 History Albuterol Sulfate [Proventil-HFA 1 - 2 puffs IH Q6HP PRN #1 each 09/04/21 10/18/21 Rx 90mcg/puff Inh] Morphine Sulfate [Morphine 4mg/mL 0.3 mg IT CONT 10/10/21 10/18/21 History syri
--- NOTE | 2021-10-19 09:46 | PC.NURSE ---
0929-Dr. Stewart notified, via phone, of patient complaints, status and pump settings. Order received to decrease constant flow dose by 20%. 1339-Patient notified of MD orders, verbalized understanding. pump dose by 20% to 0.264mg/day. Primary RN notified
--- NOTE | 2021-10-19 15:39 | PC.WOUNDNOTE ---
Right lower back, pain pump insertion on 10/08/21
[2021-10-19 16:00] VITALS: BP 132/65; PULSE 65; RESP 20; TEMP 36.9; O2SAT 95
[2021-10-19 19:33] VITALS: BP 150/69; PULSE 87; RESP 20; TEMP 36.9; O2SAT 95
[2021-10-20 04:26] VITALS: BP 149/82; PULSE 66; RESP 18; TEMP 36.8; O2SAT 94
[2021-10-20 06:22] LABS: MANUAL DIFFERENTIAL MANUAL DIFFERENTIAL (MANUAL DIFF)
[2021-10-20 06:34] LABS: Chloride 102 mmol/L (98-107); Potassium 3.4 mmoL/L (3.5-5.1); Sodium 131 mmol/L (136-145)
[2021-10-20 06:37] LABS: Anion Gap 7.4 mEq/L (5-15); Blood Urea Nitrogen 9 mg/dl (7-17); Calcium 8.2 mg/dl (8.4-10.2); Carbon Dioxide 25 mmol/L (22.0-30.0); Creatinine Clearance Estimated 127 mL/min (50-200); Estimated Glomerular Filt Rate 108 ml/min (>60); GFR (African American) 130 ML/MIN (>60); Glucose 336 mg/dl (74-100)
[2021-10-20 06:44] LABS: Basophils # 0.1 K/mm3 (0-0.2); Basophils % 1.3 % (0.1-2.0); Eosinophils # 0.2 K/mm3 (0.0-0.4); Eosinophils % 2.8 % (0.1-12.0); Hematocrit 33.3 % (37.0-47.0); Hemoglobin 10.6 g/dL (12.2-16.2); Lymphocytes # 2.2 K/mm3 (0.7-4.5); Lymphocytes % 25.7 % (10-50); Mean Corpuscular HGB Conc 31.9 g/dL (31.8-35.4); Mean Corpuscular Hemoglobin 25.6 pg (27.0-31.2); Mean Corpuscular Volume 80.4 fl (81-99); Mean Platelet Volume 7.1 fl (7.4-10.4); Monocytes # 0.3 K/mm3 (0.1-1.0); Monocytes % 3.8 % (1.7-9.3); Neutrophils # 5.7 K/mm3 (1.8-7.8); Neutrophils % 66.4 % (37.0-80.0); Platelet Count 354 K/mm3 (142-424); Red Blood Count 4.15 M/mm3 (4.20-5.40); Red Cell Distribution Width 13.9 % (11.5-17.5); White Blood Count 8.6 K/mm3 (4.8-10.8)
[2021-10-20 07:46] VITALS: BP 151/84; PULSE 68; RESP 18; TEMP 36.4; O2SAT 98
[2021-10-20 08:10] LABS: Eosinophils % 2 % (0-3); Lymphocytes % 18 % (10-50); Monocytes % 2 % (2-9); Neutrophils % 78 % (42-76); Total Cells Counted 100
[2021-10-20 08:11] LABS: Platelet Estimate Normal; RBC Morphology Normal
--- NOTE | 2021-10-20 09:49 | PC.NURSE ---
pain management stated she would have a follow up apt on saturday with no plans until then. notified md of this. also relayed patient stated would be able to get her today, and she did want nausea meds and meds for a headache if possible. did also mention her concerns about her glucose, but she will be following up outpatiently with dr domingo
[2021-10-20 10:21] LABS: Vancomycin,Trough 9.5 ug/mL (5.0-10.0)
[2021-10-20 10:44] LABS: Hemoglobin A1C 11.1 % (4.0-6.0)
--- NOTE | 2021-10-20 11:07 | HMH.PHACONS ---
- Pharmacy Consult Date: 10/20/21 Time: 11:07 Referring provider: DR. WALKER Reason for Consult:: VANCOMYCIN LEVEL AND DOSE CHANGE Allergies and ADEs:: Allergies Allergy/AdvReac Type Severity Reaction Status Date / Time cephalexin [From Keflex] Allergy Unknown Verified 10/18/21 16:16 allergy reaction Penicillins Allergy Unknown Verified 10/18/21 16:16 allergy reaction Home Medications:: Home Medications Medication Instructions Recorded Confirmed Type ibuprofen 200 mg tablet 200 mg PO Q6H PRN 03/15/21 10/18/21 History ferrous sulfate 142 mg (45 mg 142 mg PO NEEDED PRN 05/03/21 10/18/21 History iron) tablet,extended release hydralazine 50 mg tablet 100 mg PO TID tab 05/31/21 10/19/21 History Amlodipine Besylate/Benazepril 1 cap PO DAILY 07/05/21 10/19/21 History [Amlodipine-Benazepril 10-40 mg] carvediloL [Carvedilol 25mg Tab] 25 mg PO BID 07/05/21 10/18/21 History Albuterol Sulfate [Proventil-HFA 1 - 2 puffs IH Q6HP PRN #1 each 09/04/21 10/18/21 Rx 90mcg/puff Inh] Morphine Sulfate [Morphine 4mg/mL 0.3 mg IT CONT 10/10/21 10/18/21 History syringe] Desvenlafaxine Succinate 50 mg PO DAILY 10/16/21 10/18/21 History [Desvenlafaxine Succinate ER] Cefdinir [Omnicef 300mg Capsule] 300 mg PO BID 10/18/21 10/18/21 History Sertraline HCl [Zoloft 50mg tablet] 50 mg PO DAILY 10/18/21 10/18/21 History clindamycin HCL [Clindamycin HCl] 300 mg PO TID 10/18/21 10/18/21 History Gabapentin 600 mg PO BIDP PRN 10/19/21 10/19/21 History Naloxone HCl [Narcan] 4 mg NS NEEDED PRN 10/19/21 10/19/21 History hydrOXYzine pamoate [Hydroxyzine 100 mg PO HSP PRN 10/19/21 10/19/21 History Pamoate] Height: 1.78 m Weight: 150.502 kg Laboratory Results:: Laboratory Results - last 24 hr 10/20/21 05:45: Hemoglobin A1c 11.1 H 10/20/21 05:50: WBC 8.6 D, RBC 4.15 L, Hgb 10.6 L, Hct 33.3 L, MCV 80.4 L, MCH 25.6 L, MCHC 31.9, RDW 13.9, Plt Count 354, MPV 7.1 L, Neut % (Auto) 66.4, Lymph % (Auto) 25.7, [place] % (Auto) 3.8, Eos % (Auto) 2.8, Baso % (Auto) 1.3, Neut # (Auto) 5.7, Lymph # (Auto) 2.2, [place] # (Auto) 0.3, Eos # (Auto) 0.2, Baso # (Auto) 0.1, Total Counted 100, Neutrophils % (Manual) 78 H, Lymphocytes % (Manual) 18, Monocytes % (Manual) 2, Eosinophils % (Manual) 2, Platelet Estimate Normal, RBC Morphology Normal 10/20/21 05:50: Sodium 131 L, Potassium 3.4 L, Chloride 102, Carbon Dioxide 25, Anion Gap 7.4, BUN 9, Creatinine 0.60, Estimated Creat Clear 127, Estimated GFR 108, Est GFR ( Amer) 130, Glucose 336 H, Calcium 8.2 L 10/20/21 09:25: Vancomycin Trough 9.5 Medical History: Reports:: Chronic Obstructive Pulmonary Disease (COPD), Hepatitis, Hypertension, Kidney Stones Denies:: Cancer, Diabetes Mellitus Type 1, Diabetes Mellitus Type 2, Internal Pacemaker, MRSA, Seizures Assessment and Plan (1) Headache Status: Acute Qualifiers: Headache type: unspecified Headache chronicity pattern: acute headache Intractability: intractable Qualified Code(s): R51.9 - Headache, unspecified Category: Medical Code(s): R51.9 - Headache, unspecified (2) Leukocytosis Status: Acute Qualifiers: Leukocytosis type: unspecified Qualified Code(s): D72.829 - Elevated white blood cell count, unspecified Category: Medical Code(s): D72.829 - Elevated white blood cell count, unspecified (3) Back pain Status: Acute Qualifiers: Back pain location: low back pain Chronicity: chronic Back pain laterality: midline Sciatica presence: unspecified whether sciatica present Category: Medical Code(s): M54.9 - Dorsalgia, unspecified (4) Vomiting Status: Acute Qualifiers: Vomiting type: unspecified Nausea presence: with nausea Qualified Code(s): R11.2 - Nausea with vomiting, unspecified Category: Medical Code(s): R11.10 - Vomiting, unspecified (5) Degenerative joint disease (DJD) of lumbar spine Status: Chronic Qualifiers: Spinal osteoarthr
--- NOTE | 2021-10-20 12:50 | HMH.DCSUM ---
General - General Admission date:: 10/18/21 Discharge date: 10/20/21 HPI HPI: Patient states she had a pain pump placed about 1 month ago. She had her dose of morphine via pump increased on 10/10/2021. She says a couple of days later, on , she got a severe migraine. She has never had a migraine before. Since then she has had a persistent headache, repetitive vomiting. She has had a fever off and on. She was seen in the emergency department here on 10/16/2021. She says she was started on an antibiotic for urinary tract infection. Seen at pain clinic yesterday and had some stitches removed. Pain pump dosage turned down. She has Steri-Strips in place. Today she also developed diarrhea and has had about 7 episodes of diarrhea. She has not seen any blood in the diarrhea. She has some slight abdominal pain. Denies cough or URI symptoms. Has some pain at her pump incision site. She followed up in her PCP office today and has had persistent symptoms, therefore advised to come to the emergency department for further treatment and evaluation. States she is unable to keep anything down, has only drank a few ounces of water today. Feels dehydrated. States she is unable to keep her medicines down including antibiotic. Denies any current urine symptoms. States that she was having trouble going and because of this her pain pump dosage was decreased yesterday. Denies dysuria. States she had a yeast infection vaginally after her surgery. CT brain was w/o acute process COATES this morning IVF going at 100 Hospital Course Hospital Course: pt was admitted after being seen in the ed x2 and pcp office and dr seth office - pt has ongoing headache and vomiting -Pt reports migraine, nausea and vomiting for the past several days. Reports that she was seen in the ER a couple nights ago and diagnosed with a UTI, unable to keep antibiotic down related to vomiting. Pt reports, I am weak and I can't keep anything down. Patient states she had a pain pump placed about 1 month ago. She had her dose of morphine via pump increased on 10/10/2021. She says a couple of days later, on , she got a severe migraine. She has never had a migraine before. Since then she has had a persistent headache, repetitive vomiting. She has had a fever off and on. She was seen in the emergency department here on 10/16/2021. She says she was started on an antibiotic for urinary tract infection. Seen at pain clinic yesterday and had some stitches removed. Pain pump dosage turned down. She has Steri-Strips in place. Today she also developed diarrhea and has had about 7 episodes of diarrhea. She has not seen any blood in the diarrhea. She has some slight abdominal pain. Denies cough or URI symptoms. Has some pain at her pump incision site. She followed up in her PCP office today and has had persistent symptoms, therefore advised to come to the emergency department for further treatment and evaluation. States she is unable to keep anything down, has only drank a few ounces of water today. Feels dehydrated. States she is unable to keep her medicines down including antibiotic. Denies any current urine symptoms. States that she was having trouble going and because of this her pain pump dosage was decreased yesterday. Denies dysuria. States she had a yeast infection vaginally after her surgery. pt was admitted with iv abx and fluids with meds for nausea and headache -pt was seen by dr seth office and had pain pump adjusted - pt has did better with improved sx and no fever with wd culture pending but has elevated glu and hgba1c and will require meds for diabetes - Objective Vital signs: Temp Pulse Resp BP Pulse Ox 97.5 F L 68 18 151/84 H 98 10/20/21 07:46 10/20/21 07:46 10/20/21 07:46 10/20/21 07:46 10/20/21 07:46 no acute distress, obese - *Routine HEENT Exam Head: Present: normocephalic Eye: Present: EOMI, PERRL ENT: Skyla
[2021-10-20 14:38] LABS: Vancomycin,Peak 38.5 ug/ml (11-39)
== END 2021-10-20 14:22 | disposition home or self-care (01) ==
LOC: ER 19:55 → 2ND 20:28
PROVIDERS: Admitting Provider Internal Medicine Adolescent Medicine; Emergency Provider Emergency Medicine; PCP Emergency Medicine; Visit Provider Emergency Medicine
DX: J44.9 Chronic obstructive pulmonary disease, unspecified (principal); I10 Essential (primary) hypertension; E03.9 Hypothyroidism, unspecified; F17.210 Nicotine dependence, cigarettes, uncomplicated; Z88.0 Allergy status to penicillin; Z88.1 Allergy status to other antibiotic agents; E66.01 Morbid (severe) obesity due to excess calories; Z68.42 Body mass index [BMI] 45.0-49.9, adult; D72.829 Elevated white blood cell count, unspecified; M54.16 Radiculopathy, lumbar region; M47.816 Spondylosis without myelopathy or radiculopathy, lumbar region; R51.9 Headache, unspecified; Z20.822 Contact with and (suspected) exposure to COVID-19
CPT/HCPCS: 36415; 70450; 80048; 80053; 80202; 81001; 83036; 83605; 84145; 85007; 85014; 85018; 85025; 85048; 85049; 85651; 86140; 87040; 87070; 87077; 87186; 87205; 96365; 96375; 99284; C9803; G0378; J2405; J3370; U0003; U0005

== ENCOUNTER → 2021-10-23 08:45 | Outpatient (POV) | payer BC, SELFPAY ==
[2021-10-23 08:58] VITALS: BP 191/86; PULSE 75; RESP 18; O2SAT 96; BMI 46.9
--- NOTE | 2021-10-23 11:04 | HMH.PMPROC ---
- Procedure Date: 10/23/21 Time: 11:04 Anesthesiologist:: Judy Wright APRN Complications:: None Pre-procedure Diagnosis:: Degenerative disc disease lumbar spine with lumbar radiculopathy symptoms Post-procedure Diagnosis:: same Indications for Procedure:: Patient is a 46-year-old white female who is following up today. The patient was recently hospitalized for nausea/vomiting, dehydration. Patient does have an intrathecal pain pump implanted. The patient was admitted to the hospital due to hydration and was given IV fluids. She was also turned down with her intrathecal therapy at that time due to headache and urinary hesitancy. Patient says since the medication has been decreased in her pump her pain has worsened in her low back and is now in her neck area. She says that the headaches did not improve with decrease of the medicine. She was given oral medications for nausea. Patient says she has been afebrile. She reports her last fever to be on 10/16/2021 in the ER. The patient now has pus like drainage coming from the incision. The drainage is green in color. Patient was seen in the clinic on 10/17/2021 with no pus or green drainage from the incision at that time. She did go to the emergency room a few days ago and has been started on cefdinir as well as clindamycin. She is complaining of a headache as well as neck stiffness and pain. She does say she has been taking her antibiotics prescribed to her. Today, the patient does report that she also had an infection following a back surgery performed by Dr. Tate in [place] [facility]. This was in 2017. She did not recall this issue prior and did not inform the clinic. She says that she does not recall the type of treatment that she received for the infection at that time. She does say that she had issues for approximately 3 months following the surgery, however. Patient was advised at last visit if the incision continues to drain or became infected that the device would need to be explanted. Dr. Stewart did see the incision at last visit via photos and did not feel the device was infected at that time. Today, after reviewing images, he does feel the device needs to be explanted. The patient has been advised of this. Has been is very upset today. He feels that the pump should not have been implanted. He says we should have started the patient with oral medications. Patient and has been were advised at initial visit of pain treatment options in our clinic. They did agree to move forward with the pump. We will turn the pump off today and start the patient on oral medications. We will plan to see her back in the clinic following explant. The patient will be explanted in [place] at [facility]. Dr. Stewart is not available to remove the pump at [facility] this week. He would like to remove the device as soon as possible. Physical exam General: Alert and oriented x3, no acute distress, pleasant and cooperative Lungs: Respirations even and unlabored, symmetrical chest expansion Eyes: PERRL Musculoskeletal: Flexion and extension of cervical and lumbar [spine] somewhat guarded secondary to pain, [antalgic gait noted] Neurological: Speech clear, no gross sensory deficit Incision: Incision draining green?puslike drainage, no odor noted Procedure Details:: Informed consent was obtained and the risk and benefits of the procedure were explained to the patient. Patient was taken to the procedure room where noninvasive monitoring was placed including noninvasive blood pressure cuff and pulse oximeter. Patient's pump was interrogated and was reprogrammed to 0 mg/day. The patient tolerated the procedure well with no complications. Plan and Disposition:: We will start the patient per Dr. Stewart at [place] 10 mg 1 tablet p.o. 3 times daily. She will be scheduled for explant of the device this upcoming at [facility]. She h
== END ==
PROVIDERS: Visit Provider Clinical Nurse Specialist Family Health
DX: M51.16 Intervertebral disc disorders with radiculopathy, lumbar region (principal); Z45.1 Encounter for adjustment and management of infusion pump
CPT/HCPCS: 62368

== ENCOUNTER → 2021-10-23 09:47 | Outpatient (CLI) | payer BC, SELFPAY ==
[2021-10-23 10:13] LABS: Basophils # 0.1 K/mm3 (0-0.2); Basophils % 0.7 % (0.1-2.0); Eosinophils # 0.3 K/mm3 (0.0-0.4); Hematocrit 40.2 % (37.0-47.0); Hemoglobin 12.4 g/dL (12.2-16.2); Lymphocytes # 2.7 K/mm3 (0.7-4.5); Lymphocytes % 20.3 % (10-50); Mean Corpuscular HGB Conc 30.8 g/dL (31.8-35.4); Mean Corpuscular Hemoglobin 25.2 pg (27.0-31.2); Mean Corpuscular Volume 81.9 fl (81-99); Mean Platelet Volume 7.5 fl (7.4-10.4); Monocytes # 0.5 K/mm3 (0.1-1.0); Monocytes % 3.8 % (1.7-9.3); Neutrophils # 9.7 K/mm3 (1.8-7.8); Neutrophils % 73.2 % (37.0-80.0); Platelet Count 490 K/mm3 (142-424); Red Blood Count 4.91 M/mm3 (4.20-5.40); Red Cell Distribution Width 14.2 % (11.5-17.5); White Blood Count 13.2 K/mm3 (4.8-10.8)
[2021-10-23 10:50] LABS: Carbon Dioxide 29 mmol/L (22.0-30.0); Chloride 96 mmol/L (98-107); Sodium 133 mmol/L (136-145)
[2021-10-23 11:28] LABS: Anion Gap 12.2 mEq/L (5-15); Potassium 4.2 mmoL/L (3.5-5.1)
[2021-10-23 11:30] LABS: Blood Urea Nitrogen 7 mg/dl (7-17); Estimated Glomerular Filt Rate 108 ml/min (>60); GFR (African American) 130 ML/MIN (>60)
[2021-10-23 11:31] LABS: Calcium 9.7 mg/dl (8.4-10.2); Glucose 250 mg/dl (74-100)
== END ==
PROVIDERS: PCP Family Medicine; Visit Provider Clinical Nurse Specialist Family Health
DX: Z01.812 Encounter for preprocedural laboratory examination (principal); Z11.52 Encounter for screening for COVID-19
CPT/HCPCS: 36415; 80048; 85025; C9803; U0003; U0005

== ENCOUNTER → 2021-11-03 13:56 | Outpatient (POV) | payer BC, SELFPAY ==
[2021-11-03 14:17] VITALS: BP 120/57; PULSE 71; RESP 20; TEMP 36.4; O2SAT 97; BMI 47.7
--- NOTE | 2021-11-03 14:42 | HMH.PAINSOAP ---
[facility] Pain Management SOAP Note Subjective:: Patient is a pleasant 46-year-old white female who had explant of her intrathecal pain pump system catheter and battery/reservoir last week. She was placed on oxycodone 10 mg 3 times a day. Sarkis and drug screen are all appropriate Sarkis [phone]. She presents for wound check today. Her incisions are healing very nicely. There is minimal to no draining. There is no signs of infection. There is no systemic signs of infection. She does have some increasing pain because she is now off her pain pump completely and only being managed with orals which is not as good as the pain pump. Other than this she is doing well. Objective:: Alert and oriented x3 no acute distress. Patient does have an antalgic gait. Motor strength of the lower extremities is 5/5. There is no gross sensory deficit. Incisions are healing very nicely. There is no redness no drainage no signs of infection. Assessment:: Degenerative disc disease of lumbar spine with lumbar radiculopathy symptoms status post explant of intrathecal pain pump system Plan:: We will follow-up with her in 1 week. Will reevaluate symptoms at that time. We will plan on removing alberta and sutures at that time and placing Steri-Strips. She is to continue on her antibiotics as previously prescribed. [facility] History Medical History: Reports:: Chronic Obstructive Pulmonary Disease (COPD), Hepatitis, Hypertension, Kidney Stones Denies:: Cancer, Diabetes Mellitus Type 1, Diabetes Mellitus Type 2, Internal Pacemaker, MRSA, Seizures *Have you ever received a pneumonia vaccine?: No *Have you received a flu vaccine this season?: No Other Medical History: Reports: Arthritis, Hypothyroidism, Other. Denies: Blood Transfusion Reaction Other Surgeries: Yes: No Previous Surgery, Cholecystectomy, Tubal Ligation, Other. No: Pacemaker Amputation: No Fractures: No - *Social History Smoking Status: Current every day smoker Tobacco Type: cigarettes # Packs/Day (cigarettes): 1 #Yrs smoked (if former smoker): 30 Alcohol Intake: never Substance Use Type: methamphetamine *Occupational Status:: other Housing: house Household Members: spouse *Travel in the last 8 weeks: None Family Hx:: Asthma, Heart Attack, Hyperlipidemia, Hypertension, Stroke, Substance abuse, Alcoholism
== END ==
PROVIDERS: PCP Family Medicine; Visit Provider Anesthesiology
DX: M51.16 Intervertebral disc disorders with radiculopathy, lumbar region (principal); Z98.890 Other specified postprocedural states
CPT/HCPCS: 99213; G0463

== ENCOUNTER → 2021-11-10 13:34 | Outpatient (POV) | payer BC, SELFPAY ==
[2021-11-10 14:10] VITALS: BP 157/99; PULSE 109; RESP 20; TEMP 36.7; O2SAT 98; BMI 47.7
--- NOTE | 2021-11-10 15:21 | HMH.PAINSOAP ---
[facility] Pain Management SOAP Note Subjective:: She is a very pleasant 46-year-old white female who presents today for follow-up. She has recently undergone explantation of her intrathecal pain pump system including her catheters and very/reservoir 2 weeks ago. She was subsequently placed on oral oxycodone 10 mg 3 times a day. She presents today for wound check and potential suture removal today. She states that her pain is somewhat controlled with the oxycodone and she is requesting whether we can increase the number of times per day she can take this medication. She also notes dizziness that started 1 week after explantation. Notes that she has been having palpitations but denies any changes to her blood pressure including hypotension. She denies headaches or any blurry vision. She denies any fevers or chills. She states that she was prescribed antibiotics orally by her primary care physician. She has since completed her Bactrim course. She states that she has left a message for her primary care physician regarding whether she needs to continue additional antibiotics for this infection. However, she states that she waiting to hear back from her primary care physician's office. She also has a telehealth appointment with her fabrication and layout craftsman this afternoon regarding the dizziness given her concurrent history of hypertension as well as vascular issues. In regards to her her pump site infection, she denies any increased pain over the incision area or any drainage at this time. Objective:: General: Alert and oriented x3, no acute distress, pleasant and cooperative Lungs: Resps E/U, symmetric chest expansion Eyes: PERRL Musculoskeletal: limited flexion and extension of the lumbar spine secondary to pain. Deep tendon reflexes were normal in bilateral lower extremities. Motor exam was grossly intact in the bilateral lower extremities, antalgic gait noted. Skin: Both incisions appear to be with moderate edema but no drainage is appreciated. Neurological: Speech is clear, milk delivery driver equal, no gross sensory deficits Assessment:: Generative disease of the lumbar spine with lumbar radiculopathy status post explant of the intrathecal pump system Plan:: I discussed with the patient that we will continue oral antibiotics at this time and I will prescribe her Bactrim DS for 7 more days. We will follow-up with this patient in 1 week for reassessment of her incision sites/wound check as well as possible suture removal should the incision sites demonstrate appropriate healing. I discussed with the patient to reach out to her primary care physician's office as well as her fabrication and layout craftsman to follow-up with her symptoms of dizziness. I discussed with her we will not make any changes to her oral pain medications at this time until we have found the etiology of her dizziness. Follow-up with this patient in 1 week for reassessment. [facility] History Medical History: Reports:: Chronic Obstructive Pulmonary Disease (COPD), Hepatitis, Hypertension, Kidney Stones Denies:: Cancer, Diabetes Mellitus Type 1, Diabetes Mellitus Type 2, Internal Pacemaker, MRSA, Seizures *Have you ever received a pneumonia vaccine?: No *Have you received a flu vaccine this season?: No Other Medical History: Reports: Arthritis, Hypothyroidism, Other. Denies: Blood Transfusion Reaction Other Surgeries: Yes: No Previous Surgery, Cholecystectomy, Tubal Ligation, Other. No: Pacemaker Amputation: No Fractures: No - *Social History Smoking Status: Current every day smoker Tobacco Type: cigarettes # Packs/Day (cigarettes): 1 #Yrs smoked (if former smoker): 30 Alcohol Intake: never Substance Use Type: methamphetamine *Occupational Status:: other Housing: house Household Members: spouse *Travel in the last 8 weeks: None Family Hx:: Asthma, Heart Attack, Hyperlipidemia, Hypertension, Stroke, Substance abuse, Alcoholism
== END ==
PROVIDERS: PCP Family Medicine; Visit Provider Anesthesiology Pain Medicine
DX: M51.16 Intervertebral disc disorders with radiculopathy, lumbar region (principal); Z45.1 Encounter for adjustment and management of infusion pump
CPT/HCPCS: 99212; G0463

== ENCOUNTER → 2021-11-17 13:15 | Outpatient (POV) | payer BC, SELFPAY ==
[2021-11-17 14:17] VITALS: BP 151/85; PULSE 94; RESP 20; TEMP 37; O2SAT 98; BMI 47.6
--- NOTE | 2021-11-17 14:25 | HMH.PAINSOAP ---
[facility] Pain Management SOAP Note Subjective:: Patient is a pleasant 46-year-old white female who we are seeing status post pain pump removal for infection. Her incisions are healing very nicely. We will remove her alberta and sutures today. She is currently on oxycodone 10 mg 3 times a day. Sarkis and drug screen are all appropriate. She is asking for more medicine today. I told her we need to stay with oxycodone 10 mg 3 times a day. She can take Tylenol and ibuprofen in the interim. Objective:: Alert and oriented x3 no acute distress. She does have an antalgic gait. Motor strength of the lower extremities is 5/5. There is no gross sensory deficit. Incisions seem to be healing very nicely. Assessment:: Degenerative disc disease of lumbar spine with lumbar radiculopathy symptoms status post removal of intrathecal pain pump for infection. Plan:: Alberta and sutures were removed we did leave some alberta over the pump site just to make sure that there is no wound dehiscence. We will follow-up with her next week to take these in place additional Steri-Strips. She is to remain on oxycodone 10 mg 3 times a day. [facility] History Medical History: Reports:: Chronic Obstructive Pulmonary Disease (COPD), Diabetes Mellitus Type 2, Hepatitis, Hypertension, Kidney Stones Denies:: Cancer, Diabetes Mellitus Type 1, Internal Pacemaker, MRSA, Seizures *Have you ever received a pneumonia vaccine?: No *Have you received a flu vaccine this season?: No Other Medical History: Reports: Arthritis, Hypothyroidism, Other. Denies: Blood Transfusion Reaction Other Surgeries: Yes: No Previous Surgery, Cholecystectomy, Tubal Ligation, Other. No: Pacemaker Amputation: No Fractures: No - *Social History Smoking Status: Current every day smoker Tobacco Type: cigarettes # Packs/Day (cigarettes): 1 #Yrs smoked (if former smoker): 30 Alcohol Intake: never Substance Use Type: methamphetamine *Occupational Status:: other Housing: house Household Members: spouse *Travel in the last 8 weeks: None Family Hx:: Asthma, Heart Attack, Hyperlipidemia, Hypertension, Stroke, Substance abuse, Alcoholism
[2021-11-17 15:19] LABS: Basophils # 0.1 K/mm3 (0-0.2); Basophils % 0.8 % (0.1-2.0); Eosinophils # 0.2 K/mm3 (0.0-0.4); Eosinophils % 2.6 % (0.1-12.0); Hematocrit 36.2 % (37.0-47.0); Hemoglobin 11.7 g/dL (12.2-16.2); Lymphocytes # 2.2 K/mm3 (0.7-4.5); Mean Corpuscular HGB Conc 32.3 g/dL (31.8-35.4); Mean Corpuscular Volume 80.4 fl (81-99); Mean Platelet Volume 6.6 fl (7.4-10.4); Monocytes # 0.4 K/mm3 (0.1-1.0); Monocytes % 4.1 % (1.7-9.3); Neutrophils # 5.7 K/mm3 (1.8-7.8); Neutrophils % 66.5 % (37.0-80.0); Platelet Count 346 K/mm3 (142-424); Red Cell Distribution Width 13.7 % (11.5-17.5); White Blood Count 8.5 K/mm3 (4.8-10.8)
== END ==
PROVIDERS: PCP Family Medicine; Visit Provider Anesthesiology
DX: M51.16 Intervertebral disc disorders with radiculopathy, lumbar region (principal); Z98.890 Other specified postprocedural states
CPT/HCPCS: 36415; 85025; 99212; G0463

== ENCOUNTER → 2021-11-23 12:35 | Outpatient (CLI) | payer BC, SELFPAY ==
--- NOTE | 2021-11-23 12:35 | CT_ITS ---
FINAL REPORT TECHNIQUE: Pre-and postcontrast images of the abdomen were performed by computed tomography. Extensive 3-D reconstruction images were performed. A CTA was performed. This study was performed with techniques to keep radiation doses as low as reasonably achievable (ALARA). Individualized dose reduction techniques using automated exposure control or adjustment of mA and/or kV according to the patient''s size were employed. CLINICAL HISTORY: dizziness, BRIAN COMPARISON: 03/21/2021 FINDINGS: ABDOMEN: The lung bases are clear. Precontrast images demonstrate no evidence of nephrolithiasis. No adrenal masses are identified. The liver is fatty infiltrated. Patient is status post cholecystectomy. The spleen and pancreas are unremarkable. A 20 mm mass is seen in the posterior left kidney with small calcifications in the posterior rim, favor mildly, located cyst, stable from prior exam. There is also a small cyst in the upper pole the right kidney. CTA: The abdominal aorta is proper caliber. The SMA, celiac axis, and SURYA are patent. There is no significant stenosis or calcification. The renal arteries are patent bilaterally. Previously seen mid distal left main renal artery stenosis is not visualized. IMPRESSION: No evidence of renal vascular hypertension or significant renal artery stenosis. Reviewed, Interpreted and Dictated by Domenico Palma III, MD Transcribed by Marilee Laughlin Authenticated by Domenico Palma III, MD on 11/23/2021 02:43:11 PM [facility]
[2021-11-23 13:25] LABS: Blood Urea Nitrogen 13 mg/dl (7-17); Estimated Glomerular Filt Rate 108 ml/min (>60); GFR (African American) 130 ML/MIN (>60)
== END ==
PROVIDERS: PCP Family Medicine; Visit Provider Physician Assistant
DX: I70.1 Atherosclerosis of renal artery (principal); R42 Dizziness and giddiness; R39.9 Unspecified symptoms and signs involving the genitourinary system; G47.33 Obstructive sleep apnea (adult) (pediatric)
CPT/HCPCS: 36415; 74175; 82565; 84520; Q9967

== ENCOUNTER → 2021-11-24 11:04 | Outpatient (POV) | payer BC, SELFPAY ==
[2021-11-24 11:16] VITALS: BP 152/8; PULSE 81; RESP 20; TEMP 36.6; O2SAT 99; BMI 46.3
--- NOTE | 2021-11-24 12:28 | HMH.PAINSOAP ---
[facility] Pain Management SOAP Note Subjective:: Patient is a pleasant 46-year-old white female who we are seeing status post pain pump removal for infection. Her incisions are healing very nicely. We did remove some alberta and sutures last week. Her incision over her pump explant has healed very nicely we will remove the rest of the alberta today. She remains on oxycodone 10 mg 3 times a day. Sarkis and drug screen are all appropriate. She is active with good control of her pain with this oral medication. Objective:: Alert and oriented x3 no acute distress. Patient does have an antalgic gait. Motor strength of the lower extremities is 5/5. There is no gross sensory deficit. Assessment:: Degenerative disc disease of lumbar spine with lumbar radiculopathy symptoms status post removal of intrathecal pain pump for infection. Plan:: Patient's white blood cell count has been decreased back to normal. She is off all antibiotics. Her incisions of healed very nicely. Alberta removed and Steri-Strips were placed. We will follow-up with this patient in 1 month. We will renew her oxycodone 10 mg 3 times a day at that time. Sarkis and drug screen are all appropriate. Pain is under control when she is active with her medical management. [facility] History Medical History: Reports:: Chronic Obstructive Pulmonary Disease (COPD), Diabetes Mellitus Type 2, Hepatitis, Hypertension, Kidney Stones Denies:: Cancer, Diabetes Mellitus Type 1, Internal Pacemaker, MRSA, Seizures *Have you ever received a pneumonia vaccine?: No *Have you received a flu vaccine this season?: No Other Medical History: Reports: Arthritis, Hypothyroidism, Other. Denies: Blood Transfusion Reaction Other Surgeries: Yes: No Previous Surgery, Cholecystectomy, Tubal Ligation, Other. No: Pacemaker Amputation: No Fractures: No - *Social History Smoking Status: Current every day smoker Tobacco Type: cigarettes # Packs/Day (cigarettes): 1 #Yrs smoked (if former smoker): 30 Alcohol Intake: never Substance Use Type: methamphetamine *Occupational Status:: other Housing: house Household Members: spouse *Travel in the last 8 weeks: None Family Hx:: Asthma, Heart Attack, Hyperlipidemia, Hypertension, Stroke, Substance abuse, Alcoholism
== END ==
PROVIDERS: PCP Family Medicine; Visit Provider Anesthesiology
DX: M51.16 Intervertebral disc disorders with radiculopathy, lumbar region (principal); Z98.890 Other specified postprocedural states
CPT/HCPCS: 99212; G0463

== ENCOUNTER → 2021-12-12 11:57 | Outpatient (POV) | payer BC, SELFPAY ==
[2021-12-12 12:16] VITALS: BP 179/83; PULSE 79; RESP 2; O2SAT 100; BMI 46.3
--- NOTE | 2021-12-12 14:04 | P.CONS_ITS ---
[facility] Pain Management SOAP Note Subjective:: Patient is a pleasant 46-year-old white female who we are seeing for low back pain with lumbar radicular symptoms. She is status post pain pump removal for infection. Her incisions have healed very nicely. She is doing well with her oxycodone 10 mg 3 times a day. She does take ibuprofen and Tylenol in between. Sarkis and drug screen are all appropriate Sarkis [phone]. We will refill her oxycodone 10 mg 3 times a day today. We will give her 1 month supply. Overall she is doing well and has no side effects with this medication. Objective:: Alert and oriented x3 no acute distress. Patient does have an antalgic gait. Motor strength of the lower extremities is 5/5. There is no gross sensory deficit. Assessment:: Degenerative disc disease of lumbar spine with lumbar radiculopathy symptoms status post removal of intrathecal pain pump for infection Plan:: Patient is doing very well with oxycodone 10 mg 3 times a day. There is no signs of infection. Incisions of healed very nicely. We will give her 1 month supply. We will follow-up with her in 1 month. [facility] History Medical History: Reports:: Chronic Obstructive Pulmonary Disease (COPD), Diabetes Mellitus Type 2, Hepatitis, Hypertension, Kidney Stones Denies:: Cancer, Diabetes Mellitus Type 1, Internal Pacemaker, MRSA, Seizures *Have you ever received a pneumonia vaccine?: No *Have you received a flu vaccine this season?: No Other Medical History: Reports: Arthritis, Hypothyroidism, Other. Denies: Blood Transfusion Reaction Other Surgeries: Yes: No Previous Surgery, Cholecystectomy, Tubal Ligation, Other. No: Pacemaker Amputation: No Fractures: No - *Social History Smoking Status: Current every day smoker Tobacco Type: cigarettes # Packs/Day (cigarettes): 1 #Yrs smoked (if former smoker): 30 Alcohol Intake: never Substance Use Type: methamphetamine *Occupational Status:: other Housing: house Household Members: spouse *Travel in the last 8 weeks: None Family Hx:: Asthma, Heart Attack, Hyperlipidemia, Hypertension, Stroke, Substance abuse, Alcoholism
== END ==
PROVIDERS: PCP Family Medicine; Visit Provider Anesthesiology
DX: M51.16 Intervertebral disc disorders with radiculopathy, lumbar region (principal); Z98.890 Other specified postprocedural states
CPT/HCPCS: 99212; G0463

== ENCOUNTER → 2021-12-12 13:57 | Outpatient (CLI) | payer BC, SELFPAY ==
[2021-12-12 15:49] LABS: Anion Gap 10.3 mEq/L (5-15); Blood Urea Nitrogen 11 mg/dl (7-17); Calcium 9.4 mg/dl (8.4-10.2); Carbon Dioxide 27 mmol/L (22.0-30.0); Chloride 107 mmol/L (98-107); Estimated Glomerular Filt Rate 108 ml/min (>60); GFR (African American) 130 ML/MIN (>60); Glucose 125 mg/dl (74-100); Potassium 4.3 mmoL/L (3.5-5.1); Sodium 140 mmol/L (136-145)
== END ==
PROVIDERS: Visit Provider Physician Assistant
DX: R07.9 Chest pain, unspecified (principal); I10 Essential (primary) hypertension; R94.31 Abnormal electrocardiogram [ECG] [EKG]
CPT/HCPCS: 36415; 80048

== ENCOUNTER → 2021-12-18 15:46 | Outpatient (CLI) | payer BC, SELFPAY | PROVIDERS: Visit Provider Family Medicine | DX: N20.0 Calculus of kidney (principal); B96.20 Unspecified Escherichia coli [E. coli] as the cause of diseases classified elsewhere | CPT/HCPCS: 87086; 87088; 87186 ==

== ENCOUNTER → 2022-05-02 20:05 | Outpatient (CLI) | payer BC, SELFPAY | PROVIDERS: PCP Family Medicine; Visit Provider Specialist | DX: G47.33 Obstructive sleep apnea (adult) (pediatric) (principal) | CPT/HCPCS: 95811 ==

== ENCOUNTER → 2022-12-12 13:11 | Outpatient (CLI) | payer BC, SELFPAY ==
--- NOTE | 2022-12-12 13:12 | MM_ITS ---
PROCEDURE INFORMATION: Exam: Bilateral Screening 3D Mammography Exam date and time: 12/12/2022 1:17 PM Age: 47 years old Clinical indication: Screening. No family history of breast cancer. TECHNIQUE: Imaging protocol: Bilateral Screening tomosynthesis and 2D mammography including computer-aided detection (CAD) when performed. COMPARISON: No relevant prior studies available.If prior mammograms are provided, I am happy to add an addendum. FINDINGS: MAMMOGRAPHY: Breast composition: There are scattered areas of fibroglandular density. Mass: None. Architectural distortion: None. Calcifications: No suspicious calcifications. Asymmetric density: Patchy bilateral focal asymmetries, more likely asymmetrically distributed breast tissue, in the right upper outer breast and in the left upper inner quadrant and to a lesser extent, upper outer quadrant. Skin thickening: None. Axillary adenopathy: None. IMPRESSION: Comparison to prior mammogram will be most helpful. If this is not provided within 2 weeks, patient will be recalled for bilateral diagnostic mammography with bilateral spot compression in the CC projections and bilateral true lateral projections, as well as bilateral sonography for further evaluation of questionable bilateral asymmetries or asymmetrically dense breast tissue. ASSESSMENT: BI-RADS Category 0: Incomplete- Need Additional Imaging Evaluation and/or Prior Mammograms for Comparison
== END ==
PROVIDERS: PCP Family Medicine; Visit Provider Family Medicine
DX: Z12.31 Encounter for screening mammogram for malignant neoplasm of breast (principal)
CPT/HCPCS: 77063; 77067

== ENCOUNTER → 2023-01-02 13:40 | Outpatient (CLI) | payer BC, SELFPAY ==
--- NOTE | 2023-01-02 13:41 | MM_ITS ---
PROCEDURE INFORMATION: Exam: US Left Breast, Complete US Right Breast, Complete MG Bilateral Diagnostic Breast Tomosynthesis Exam date and time: 01/02/2023 1:32 PM Age: 47 years old Clinical indication: Patient recalled on the basis of a screening mammogram for further evaluation; Bilateral breasts; asymmetries TECHNIQUE: Imaging protocol: Complete ultrasound of all four quadrants of the left breast and the retroareolar regions, including ultrasound of the axilla when performed. Complete ultrasound of all four quadrants of the right breast and the retroareolar regions, including ultrasound of the axilla when performed. Bilateral Diagnostic tomosynthesis and 2D mammography including computer-aided detection (CAD) when performed. Unilateral or bilateral exam. COMPARISON: MG MM DIG SCREENING MAMM BI W/CAD 12/12/2022 1:17 PM FINDINGS: MAMMOGRAPHY: Digital diagnostic spot compression views of both breast and 90 degree lateral views of both breast demonstrate focal subcentimeter asymmetries admixed with benign fatty tissue elements, most consistent with benign breast tissue. ULTRASOUND: Sonographic images of both breasts including the retroareolar regions, all 4 quadrants and the axilla do not demonstrate any solid or cystic masses. No architectural distortion or acoustical shadowing. Cursors were placed over slightly echogenic subcutaneous fat in the left 1 o'clock axis 7 cm from the nipple with a central 0.2 cm low density focus likely reflecting either an inclusion cyst or possibly focal benign fat necrosis. No skin thickening or axillary adenopathy. IMPRESSION: No mammographic or sonographic evidence of malignancy. Annual bilateral mammographic screening is recommended unless otherwise clinically indicated. ASSESSMENT: BI-RADS Category 2: Benign
== END ==
LOC: RAD 13:41
PROVIDERS: PCP Family Medicine; Visit Provider Family Medicine
DX: R92.8 Other abnormal and inconclusive findings on diagnostic imaging of breast (principal)
CPT/HCPCS: 76641; 77062; 77066; G0279

== ENCOUNTER 2023-02-15 08:05 | Day surgery (SDC) | payer BC, SELFPAY ==
[2023-02-13 09:54] VITALS: BMI 44.6
[2023-02-15 08:31] VITALS: BP 168/90; PULSE 83; RESP 18; TEMP 37.3; O2SAT 97
--- NOTE | 2023-02-15 08:42 | EXP.ANES.CKL ---
[facility] Disclaimer: The information contained in this section may have been updated after the patient was seen, as this information can be updated by other users. Medical History Abnormal renal finding Allergies Anxiety and depression Asthma Bronchitis Diabetes mellitus, type 2 Dizziness Dyspnea Edema Hemorrhoid History of anemia History of back pain History of COVID-19 Hypertension Hyperthyroidism Kidney stone Migraine RICARDO (obstructive sleep apnea) Sleep apnea Surgical History H/O tubal ligation History of back surgery History of surgery Hx of cholecystectomy Family History Other Cancer Coronary artery disease Diabetes FHx: mental illness Heart attack Hyperlipidemia Hypertension Kidney disease Stroke Social History Smoking Status: Current every day smoker tobacco type: cigarettes packs per day: 1 alcohol intake: never substance use type: former substance user and methamphetamine current occupational status: disabled Travel in the last 8 weeks: None household members: spouse housing: house marital status: number of children: 2 current occupation: trying to apply for disability caffeine: Yes [facility] Anesthesia Checklist Patient Identification Patient Identification: Arm Band and Verbal (Name & ) Structural Data Admitted From: Home Planned Operative Procedure/s: Colonoscopy Consent for Planned Operative Procedure(s) Verified: Yes NPO Status Verified Time NPO: 00:00 Additional verifications Anesthesia Reactions: Yes (n/v) Hx Blood Transfusions: No Blood Transfusion Reaction: No Airway Assessment C-Spine Mobility Assessed: Yes TMJ Mobility Assessed: Yes Dentition: Dentures-poor fitting Neurological Assessment Level of Consciousness: Awake Hx Seizures: No Numbness or tingling in extremities: No Anesthesia Plan Anesthesia Risk discussed: Yes Anesthesia Plan: Verified ASA Class: III Anesthesia Type: MAC
[2023-02-15 08:56] LABS: POC Glucose,Bedside 139 (70-110)
[2023-02-15 09:08] LABS: Basophils # 0.1 K/mm3 (0-0.2); Basophils % 0.6 % (0.1-2.0); Eosinophils # 0.1 K/mm3 (0.0-0.4); Eosinophils % 1.7 % (0.1-12.0); Hematocrit 39.8 % (37.0-47.0); Hemoglobin 12.6 g/dL (12.2-16.2); Lymphocytes # 2.5 K/mm3 (0.7-4.5); Lymphocytes % 30.5 % (10-50); Mean Corpuscular HGB Conc 31.7 g/dL (31.8-35.4); Mean Corpuscular Hemoglobin 24.5 pg (27.0-31.2); Mean Corpuscular Volume 77.2 fl (81-99); Mean Platelet Volume 7.2 fl (7.4-10.4); Monocytes # 0.3 K/mm3 (0.1-1.0); Monocytes % 3.9 % (1.7-9.3); Neutrophils # 5.1 K/mm3 (1.8-7.8); Neutrophils % 63.4 % (37.0-80.0); Platelet Count 334 K/mm3 (142-424); Red Blood Count 5.15 M/mm3 (4.20-5.40); Red Cell Distribution Width 15.2 % (11.5-17.5); White Blood Count 8.1 K/mm3 (4.8-10.8)
[2023-02-15 09:09] LABS: Chloride 103 mmol/L (98-107); Potassium 3.8 mmoL/L (3.5-5.1); Sodium 140 mmol/L (136-145)
[2023-02-15 09:11] LABS: Alanine Aminotransferase 26 U/L (12-78); Aspartate Amino Transferase 34 U/L (14-36); Blood Urea Nitrogen 11 mg/dl (7-17); Creatinine Clearance Estimated 94 mL/min (50-200); Estimated Glomerular Filt Rate 77 ml/min (>60); GFR (African American) 93 ML/MIN (>60)
[2023-02-15 09:12] LABS: Albumin Level 4.1 g/dl (3.5-5.0); Albumin/Globulin Ratio 1.2 (1.1-1.8); Alkaline Phosphatase 111 U/L (38-126); Anion Gap 12.8 mEq/L (5-15); Bilirubin,Total 0.4 mg/dl (0.2-1.3); Calcium 9.1 mg/dl (8.4-10.2); Carbon Dioxide 28 mmol/L (22.0-30.0); Globulin 3.5 g/dL (1.3-3.2); Glucose 147 mg/dl (74-100); Total Protein,Serum 7.6 g/dl (6.3-8.2)
[2023-02-15 09:13] LABS: Prothrombin Time 10.8 seconds (10.1-12.5)
--- NOTE | 2023-02-15 09:16 | P.PCN_ITS ---
Procedure: Date: 02/15/23 Patient Date of :: 1975 Procedure Performed:: Total colonoscopy with polypectomy Indications:: Patient is a 47-year-old disabled smoker from [facility] with history of hepatitis C, hypertension, hypothyroidism, chronic degenerative joint disease with previous history of pain pump which became infected requiring removal, diabetes, anxiety, obstructive sleep apnea. She states that she had previously had hepatitis C treated at [facility]. She was scheduled for colonoscopy with surgery for screening . However, the patient describes internal hemorrhoids . She has symptoms consistent with hemorrhoidal prolapse. She has recently had some rectal bleeding. She states that she has problems with chronic constipation and has to manually disimpact herself every 3 to 4 days in order to have a bowel movement. She has a family history of colon cancer in her grandmother and uncle. Performing Provider:: Domenico William MD Referring Provider:: Alex Perez MD Sedation:: MAC sedation Procedure:: Patient history was obtained and appropriate physical examination was performed. Patient's medications and allergies were reviewed. Informed consent was obtained after explaining the benefits, alternatives, and risks of the procedure including, but not limited to, bleeding, perforation, missed lesions, and adverse reaction to anesthesia medications. Patient was transported to endoscopy procedure room. Patient was connected to monitoring devices. Throughout the procedure the patient's blood pressure, pulse, and oxygen saturations were monitored continuously. Patient identification and planned procedure were verified by the staff. Patient was positioned in lateral decubitus position. Digital anorectal exam was performed. Variable stiffness Olympus colonoscope was inserted and advanced under direct visualization to the cecum. Adequacy of the colonic preparation was noted. The colonoscope was unable to be advanced into the te rminal ileum. The colonoscope was then slowly withdrawn while carefully examining the color, texture, anatomy, and integrity of the mucosoa circumferentially. Within the rectum retroflexion was performed. Colonoscope was then withdrawn. Colonic preparation was fair as there was particulate opaque stool throughout the colon mostly in the right colon. With high-volume irrigation and suctioning this was able to be cleared. There was a moderate, approximately 10 mm, adenomatous appearing polyp in the ascending colon removed in its majority using cold snare. There was some minor bleeding from polypectomy site and Hemoclip was deployed. Potential residual polypoid tissue was removed in a piecemeal fashion using biopsy forceps. There were a few rare diverticuli. There were a couple of hyperplastic appearing rectal polyps which were removed with biopsy forceps. Retroflexion within the rectum revealed minimal hemorrhoids. There is minimal redundancy of the hemorrhoids possibly from prolapse. Findings:: Fair prep 10 mm adenomatous polyp in the ascending colon Rare diverticuli Hyperplastic appearing rectal polyps Minimal internal hemorrhoids Recommendations:: Rectal bleeding and symptoms of hemorrhoidal prolapse would likely be corrected with treating her functional constipation. She may benefit from gastroenterology consultation. Follow-up colonoscopy pending pathology but given fair prep and family history likely repeat colonoscopy 2 to 3 years. Complications:: None immediate Estimated blood obtained (mL): 3
[2023-02-15 09:26] VITALS: O2SAT 98
[2023-02-15 09:29] LABS: HCG Qualitative, Serum Negative (Negative)
[2023-02-15 10:15] VITALS: BP 135/74; PULSE 105; RESP 18; TEMP 36.1; O2SAT 97
[2023-02-15 10:25] VITALS: BP 142/74; PULSE 94; RESP 18; O2SAT 98
[2023-02-15 10:35] VITALS: BP 162/94; PULSE 95; RESP 16; O2SAT 8
[2023-02-15 10:45] VITALS: BP 145/87; PULSE 79; RESP 16; TEMP 36.6; O2SAT 98
== END 2023-02-15 10:55 | disposition home or self-care (01) ==
PROVIDERS: PCP Family Medicine; Visit Provider Surgery
PROC: 0DJD8ZZ Inspection of Lower Intestinal Tract, Via Natural or Artificial Opening Endoscopic (ICD-10-PCS; CPT 45380; principal; 2023-02-15 09:30)
DX: Z12.11 Encounter for screening for malignant neoplasm of colon (principal); K63.5 Polyp of colon; F17.210 Nicotine dependence, cigarettes, uncomplicated; Z79.899 Other long term (current) drug therapy; E11.9 Type 2 diabetes mellitus without complications
CPT/HCPCS: 45380; 45385; 80053; 82962; 84703; 85025; 85610; J2704

== ENCOUNTER → 2023-05-06 23:00 | Outpatient (CLI) | payer BC, SELFPAY ==
[2023-05-06 19:00] LABS: Alanine Aminotransferase 30 U/L (12-78); Albumin Level 4.3 g/dl (3.5-5.0); Albumin/Globulin Ratio 1.3 (1.1-1.8); Alkaline Phosphatase 118 U/L (38-126); Anion Gap 14.4 mEq/L (5-15); Aspartate Amino Transferase 33 U/L (14-36); Bilirubin,Total 0.3 mg/dl (0.2-1.3); Blood Urea Nitrogen 10 mg/dl (7-17); Calcium 9.4 mg/dl (8.4-10.2); Carbon Dioxide 26 mmol/L (22.0-30.0); Chloride 104 mmol/L (98-107); Chol/HDL Ratio 3.8 (1-3.5); Cholesterol 177 mg/dl (140-200); Estimated Glomerular Filt Rate 89 ml/min (>60); GFR (African American) 108 ML/MIN (>60); Globulin 3.2 g/dL (1.3-3.2); Glucose 148 mg/dl (74-100); HDL Cholesterol 47 mg/dl (40-60); Potassium 4.4 mmoL/L (3.5-5.1); Sodium 140 mmol/L (136-145); Total Protein,Serum 7.5 g/dl (6.3-8.2); Triglycerides 126 mg/dl (30-150); VLDL Cholesterol 25 mg/dL (0-40)
[2023-05-06 19:10] LABS: Direct LDL Cholesterol 101.81 mg/dL (100-129)
[2023-05-06 19:51] LABS: Hemoglobin A1C 7.3 % (4.0-6.0)
== END ==
PROVIDERS: PCP Family Medicine; Visit Provider Family Medicine
DX: E11.9 Type 2 diabetes mellitus without complications (principal); I10 Essential (primary) hypertension; Z79.899 Other long term (current) drug therapy
CPT/HCPCS: 80053; 80061; 83036

== ENCOUNTER 2023-07-08 13:38 | Emergency (ER) | payer BC, SELFPAY ==
--- NOTE | 2023-07-08 14:12 | HMH.EDGENADL ---
Discharge Plan Disposition Patient Disposition: Home, Self-Care Chief Complaint: PAIN Prescriptions Prescriptions: No Action ergocalciferol (vitamin D2) 1,250 mcg (50,000 unit) capsule 50,000 unit PO WEEKLY ondansetron HCl 4 mg tablet 4 mg PO TID PRN (Reason: nausea and vomiting) Qty: 60 0RF Slow Fe 142 mg (45 mg iron) tablet extended release 142 mg PO NEEDED PRN (Reason: restless) oxycodone 10 mg tablet 7.5 mg PO QID MDD 2359 amlodipine-benazepril 10-40 mg capsule 1 cap PO DAILY Qty: 90 3RF Rx Instructions: 10/40mg carvedilol 25 mg tablet See Rx Instructions .ROUTE .COMPLEX Qty: 180 3RF Rx Instructions: TAKE TWO TABLETS BY MOUTH TWICE DAILY FOR BLOOD PRESSURE --TAKE WITH FOOD-- (DME) blood sugar diagnostic Strip See Rx Instructions .Route DAILY Qty: 50 10RF Rx Instructions: Test sugar twice daily or As directed alprazolam 1 mg tablet 1 mg PO DAILY PRN (Reason: anxiety) Qty: 20 3RF Rx Instructions: for panic attacks only Mounjaro 5 mg/0.5 mL pen injector 5 mg SQ WEEKLY Qty: 2 3RF Mounjaro 2.5 mg/0.5 mL pen injector 2.5 mg SQ WEEKLY Qty: 2 3RF hydralazine 50 mg tablet 50 mg PO TID Qty: 90 0RF gabapentin 600 MG tablet 600 mg PO BIDP PRN (Reason: pain) triamterene-hydrochlorothiazid 1 EACH tablet 1 tab PO DAILY albuterol sulfate 90 mcg/actuation HFA aerosol inhaler See Rx Instructions .ROUTE .COMPLEX Rx Instructions: INHALE TWO PUFFS BY MOUTH EVERY 6 HOURS NEEDED (DME) blood-glucose meter 1 EACH misc See Rx Instructions .Route DAILY Rx Instructions: Test sugar tiwce daily or As directed (DME) lancets 1 EACH misc See Rx Instructions .Route TID Rx Instructions: Teste twice daily or As directed Referrals Follow up/Referrals: Matt Arredondo MD [Primary Care Provider] - See instructions Activity Restrictions/Add. Instructions Additional Instructions/Restrictions: Call your family doctor to establish care for this visit to the emergency department and schedule follow-up within 48 hours to ensure improvement. If you have any worsening of your condition or any other concerning signs or symptoms, return to the emergency department or your primary care doctor for further evaluation. Talk to family doctor about scheduling physical therapy. Clinical Impressions Clinical Impression: Acute pain of right knee Discharge ED Provider: Andrae Hester General Adult HPI General Chief complaint: PAIN Stated complaint: HURT RIGHT KNEE Time Seen by Provider: 07/08/23 13:43 History of Present Illness HPI narrative: 48-year-old female history of hypertension, hyperlipidemia, anxiety, diabetes presenting with right knee pain. Patient states that she got a new motor home a couple of months ago. Since 3 days prior to arrival, started having pain in her right knee when standing up from sitting down or sitting from standing. Made worse by going up the stairs. No fevers or chills, redness, heat, but pain is mild in intensity at rest, severe in intensity while ranging. Has not locked up on her given out on her. No trauma to the area. Related Data Home Medications Medication Instructions Recorded Confirmed ferrous sulfate 142 mg (45 mg 142 mg PO NEEDED PRN restless 05/03/21 05/06/23 iron) tablet,extended release (Slow Fe) gabapentin 600 mg tablet 600 mg PO BIDP PRN pain 10/19/21 05/06/23 blood-glucose meter 11/03/21 05/06/23 lancets 11/03/21 05/06/23 ergocalciferol (vitamin D2) 1,250 50,000 unit PO WEEKLY Supplement 11/13/21 05/06/23 mcg (50,000 unit) capsule triamterene 37.5 1 tab PO DAILY blood pressure 12/12/21 05/06/23 mg-hydrochlorothiazide 25 mg tablet oxycodone 10 mg tablet 7.5 mg PO QID Pain 05/30/22 05/06/23 albuterol sulfate 90 mcg/actuation See Rx Instructions .Route 02/15/23 05/06/23 aerosol inhaler .COMPLEX Breathing problems Previous Rx's Medicat
[2023-07-08 14:19] VITALS: BMI 45.6
[2023-07-08 14:20] VITALS: BP 195/97; PULSE 96; RESP 20; TEMP 36.8; O2SAT 99; BMI 45.6
--- NOTE | 2023-07-08 14:20 | XR_ITS ---
FINAL REPORT CLINICAL HISTORY: Right knee pain/inflammation COMPARISON: None FINDINGS: Three views of the right knee reveal no evidence of fracture or dislocation. The bony alignment is normal. Meniscal calcification is noted. There is mild degenerative change. There is a moderate joint effusion. No localized soft tissue abnormality is identified. IMPRESSION: Mild degenerative change and moderate joint effusion. No acute bony abnormality. Reviewed, Interpreted and Dictated by Domenico Palma III, MD Transcribed by Oralia Hugo Authenticated and [facility]
[2023-07-08 15:33] VITALS: BP 178/87; PULSE 87; RESP 20; TEMP 36.8; O2SAT 97
== END 2023-07-08 15:34 | disposition home or self-care (01) ==
PROVIDERS: Emergency Provider Emergency Medicine; PCP Family Medicine
DX: M25.561 Pain in right knee (principal)
CPT/HCPCS: 73564; 96372; 99284

== ENCOUNTER 2023-11-20 20:44 | Outpatient (CLI) | payer BC, SELFPAY ==
[2023-11-20 18:33] LABS: Hemoglobin A1C 6.4 % (4.0-6.0)
[2023-11-20 18:44] LABS: Alanine Aminotransferase 20 U/L (12-78); Albumin Level 4.1 g/dl (3.5-5.0); Albumin/Globulin Ratio 1.4 (1.1-1.8); Alkaline Phosphatase 100 U/L (38-126); Aspartate Amino Transferase 23 U/L (14-36); Bilirubin,Total 0.3 mg/dl (0.2-1.3); Blood Urea Nitrogen 10 mg/dl (7-17); Calcium 9.3 mg/dl (8.4-10.2); Carbon Dioxide 28 mmol/L (22.0-30.0); Chloride 106 mmol/L (98-107); Chol/HDL Ratio 4.7 (1-3.5); Cholesterol 164 mg/dl (140-200); Estimated Glomerular Filt Rate 89 ml/min (>60); GFR (African American) 108 ML/MIN (>60); Globulin 2.9 g/dL (1.3-3.2); Glucose 124 mg/dl (74-100); HDL Cholesterol 35 mg/dl (40-60); Sodium 140 mmol/L (136-145); Triglycerides 138 mg/dl (30-150); VLDL Cholesterol 28 mg/dL (0-40)
[2023-11-20 18:50] LABS: Anion Gap 10.2 mEq/L (5-15); Potassium 4.2 mmoL/L (3.5-5.1)
[2023-11-20 18:56] LABS: Direct LDL Cholesterol 97.67 mg/dL (100-129)
[2023-11-20 19:15] LABS: Thyroid Stimulating Hormone 7.94 uIU/mL (0.465-4.68)
== END 2023-11-20 23:59 ==
LOC: LAB.DROPOF 20:44
PROVIDERS: PCP Family Medicine; Visit Provider Family Medicine
DX: E11.9 Type 2 diabetes mellitus without complications (principal); E03.9 Hypothyroidism, unspecified; Z79.899 Other long term (current) drug therapy
CPT/HCPCS: 80053; 80061; 83036; 84443

== ENCOUNTER 2024-05-06 12:58 | Outpatient (CLI) | payer MEDICARE, SELFPAY ==
--- NOTE | 2024-05-06 13:02 | MM_ITS ---
PROCEDURE INFORMATION: Exam: MG Bilateral Screening 3D Mammography Exam date and time: 05/06/2024 12:50 PM Age: 49 years old Clinical indication: Screening examination TECHNIQUE: Imaging protocol: Bilateral Screening tomosynthesis and 2D mammography including computer-aided detection (CAD) when performed. COMPARISON: 1. MG MM DIG MAMM BI DX W/CAD 01/02/2023 1:32 PM 2. MG MM DIG SCREENING MAMM BI W/CAD 12/12/2022 1:17 PM FINDINGS: MAMMOGRAPHY: Breast composition: There are scattered areas of fibroglandular density. Mass: None. Architectural distortion: None. Calcifications: No suspicious calcifications. Asymmetric density: None. Skin thickening: None. Axillary adenopathy: None. IMPRESSION: No mammographic evidence of malignancy. Annual screening is recommended unless otherwise clinically indicated. ASSESSMENT: BI-RADS Category 1: Negative
== END 2024-05-06 23:59 | disposition home or self-care (01) ==
LOC: RAD 13:00
PROVIDERS: PCP Family Medicine; Visit Provider Family Medicine
DX: Z12.31 Encounter for screening mammogram for malignant neoplasm of breast (principal)
CPT/HCPCS: 77063; 77067

== ENCOUNTER 2024-06-11 10:18 | Outpatient (CLI) | payer MEDICARE, SELFPAY ==
--- NOTE | 2024-06-11 10:29 | XR_ITS ---
FINAL REPORT CLINICAL HISTORY: productive cough x1 week COMPARISON: 10/17/2021 FINDINGS: 2 views of the chest were obtained . The heart is normal in size. The mediastinum is within normal limits. The lungs are clear. There is no pneumothorax. Osseous structures are unremarkable. IMPRESSION: No acute cardiopulmonary process. Reviewed, Interpreted and Dictated by Roger Davis MD Transcribed by Marilee Laughlin Authenticated and [facility]
== END 2024-06-11 23:59 | disposition home or self-care (01) ==
LOC: LAB 10:21
PROVIDERS: PCP Family Medicine; Visit Provider Family Medicine
DX: R05.9 Cough, unspecified (principal); R05.8 Other specified cough
CPT/HCPCS: 71046; 87635

== ENCOUNTER 2024-11-19 09:08 | Outpatient (CLI) | payer MEDICARE, SELFPAY ==
--- NOTE | 2024-11-19 09:09 | CT_ITS ---
FINAL REPORT TECHNIQUE: Thin section axial images were obtained through the abdomen after contrast injection per CT angiogram protocol. Multiplanar reconstruction images were obtained from the axial data. This exam was performed with techniques to keep radiation dose as low as reasonably achievable. This includes automated exposure control, adjustment of the MA and KVP, and iterative reconstruction technique. CLINICAL HISTORY: Renal Artery Stenosis COMPARISON: 11/23/2021 FINDINGS: CTA: No abdominal aortic aneurysm or aortic dissection. 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 The superior mesenteric artery, and inferior mesenteric artery are patent without stenosis. The renal arteries are patent, specifically no evidence of renal artery stenosis is identified. The common iliac arteries and visualized portions of the internal and external iliac arteries are patent. No significant stenosis. NONVASCULAR: The gallbladder is surgically absent. There is fatty infiltration of the liver. A small upper pole right renal cyst is once again identified, stable. The solid abdominal organs are otherwise without acute abnormality. The GI tract is without acute abnormality. No lymphadenopathy or free fluid. No acute osseous abnormality. The appendix is normal in appearance. The uterus and ovaries are unremarkable. No free fluid or adenopathy is present. IMPRESSION: No evidence of renal artery stenosis or abnormality of the abdominal and pelvic aorta is noted. Reviewed, Interpreted and Dictated by Roger Davis MD Transcribed by Alexandria Shaver Authenticated and [facility]
[2024-11-19 09:33] LABS: Basophils # 0.1 K/mm3 (0-0.2); Basophils % 0.8 % (0.1-2.0); Eosinophils # 0.2 K/mm3 (0.0-0.4); Eosinophils % 2.3 % (0.1-12.0); Hematocrit 34.8 % (37.0-47.0); Hemoglobin 10.7 g/dL (12.2-16.2); Lymphocytes # 3.3 K/mm3 (0.7-4.5); Mean Corpuscular HGB Conc 30.7 g/dL (31.8-35.4); Mean Corpuscular Hemoglobin 23.9 pg (27.0-31.2); Mean Corpuscular Volume 77.7 fl (81-99); Mean Platelet Volume 8.7 fl (7.4-10.4); Monocytes # 0.5 K/mm3 (0.1-1.0); Monocytes % 5.7 % (1.7-9.3); Platelet Count 373 K/mm3 (142-424); Red Blood Count 4.48 M/mm3 (4.20-5.40); Red Cell Distribution Width 14.6 % (11.5-17.5); White Blood Count 9.1 K/mm3 (4.8-10.8)
[2024-11-19 09:44] LABS: Alanine Aminotransferase 18 U/L (12-78); Albumin Level 4.5 g/dl (3.5-5.0); Albumin/Globulin Ratio 1.9 (1.1-1.8); Alkaline Phosphatase 72 U/L (38-126); Anion Gap 11.4 mEq/L (5-15); Aspartate Amino Transferase 27 U/L (14-36); Bilirubin,Total 0.2 mg/dl (0.2-1.3); Blood Urea Nitrogen 12 mg/dl (7-17); Calcium 9.9 mg/dl (8.4-10.2); Carbon Dioxide 27 mmol/L (22.0-30.0); Chloride 104 mmol/L (98-107); Chol/HDL Ratio 3.1 (1-3.5); Cholesterol 144 mg/dl (140-200); Estimated Glomerular Filt Rate 76 ml/min (>60); GFR (African American) 92 ML/MIN (>60); Globulin 2.4 g/dL (1.3-3.2); Glucose 95 mg/dl (74-100); HDL Cholesterol 46 mg/dl (40-60); Potassium 4.4 mmoL/L (3.5-5.1); Sodium 138 mmol/L (136-145); Total Protein,Serum 6.9 g/dl (6.3-8.2); Triglycerides 93 mg/dl (30-150); VLDL Cholesterol 19 mg/dL (0-40)
[2024-11-19 10:01] LABS: T4 (Thyroxine) 8.5 ug/dl (5.53-11.0)
[2024-11-19] MEDS: SODIUM CHLORIDE 0.9% 10ML SYR (RAD ONLY) 10 ML IV (10:20)
[2024-11-19] MEDS: IOPAMIDOL-370 (76%);100ML BOTTLE 100 ML IV (10:20)
[2024-11-19 11:21] LABS: 25-OH Vitamin D, Total 16.8 ng/mL (30-100)
[2024-11-19 11:54] LABS: Hemoglobin A1C 5.9 % (4.0-6.0)
== END 2024-11-19 23:59 | disposition home or self-care (01) ==
LOC: RAD 09:09
PROVIDERS: PCP Family Medicine; Visit Provider Family Medicine
DX: I70.1 Atherosclerosis of renal artery (principal); E11.9 Type 2 diabetes mellitus without complications; E03.9 Hypothyroidism, unspecified; G89.29 Other chronic pain; M54.50 Low back pain, unspecified; E66.01 Morbid (severe) obesity due to excess calories; Z68.42 Body mass index [BMI] 45.0-49.9, adult
CPT/HCPCS: 36415; 74174; 80053; 80061; 82306; 83036; 84436; 84443; 85025; Q9967

== ENCOUNTER 2025-05-27 16:34 | Outpatient (CLI) | payer MEDICARE, BC, SELFPAY ==
--- NOTE | 2025-05-27 17:00 | MM_ITS ---
PROCEDURE INFORMATION: Exam: MG Bilateral Screening 3D Mammography Exam date and time: 05/27/2025 4:46 PM Age: 50 years old Clinical indication: Screening examination TECHNIQUE: Imaging protocol: Bilateral Screening tomosynthesis and 2D mammography including computer-aided detection (CAD) when performed. COMPARISON: 1. MG MM DIG SCREENING MAMM BI W/CAD 05/06/2024 12:50 PM 2. MG MM DIG MAMM BI DX W/CAD 01/02/2023 1:32 PM FINDINGS: MAMMOGRAPHY: Breast composition: There are scattered areas of fibroglandular density. Mass: None. Architectural distortion: None. Calcifications: No suspicious calcifications. Asymmetric density: None. Skin thickening: None. Axillary adenopathy: None. IMPRESSION: No mammographic evidence of malignancy. Annual screening is recommended unless otherwise clinically indicated. ASSESSMENT: BI-RADS Category 1: Negative.
== END 2025-05-27 23:59 | disposition home or self-care (01) ==
LOC: RAD 16:39
PROVIDERS: PCP Family Medicine; Referring Provider Nurse Practitioner; Visit Provider Nurse Practitioner
DX: Z12.31 Encounter for screening mammogram for malignant neoplasm of breast (principal); R92.323 Mammographic fibroglandular density, bilateral breasts
CPT/HCPCS: 77063; 77067

== ENCOUNTER 2025-06-02 12:00 | Outpatient (CLI) | payer MEDICARE, BC, SELFPAY | END 2025-06-02 23:59 | disposition home or self-care (01) | LOC: LAB.DROPOF 06-03 12:45 | PROVIDERS: PCP Family Medicine; Visit Provider Family Medicine | DX: N94.89 Other specified conditions associated with female genital organs and menstrual cycle (principal); E11.9 Type 2 diabetes mellitus without complications | CPT/HCPCS: 82043; 82570; 87086 ==

== ENCOUNTER 2025-06-25 13:08 | Outpatient (CLI) | payer BC, MEDICARE, SELFPAY ==
--- NOTE | 2025-06-25 13:45 | CA_ITS ---
APPROVED REPORT EXAM: Comprehensive 2D, Doppler, and color-flow Echocardiogram Catalog Librarian: Daria Delacruz CRT Ht: 5 ft 10 in Wt: 302lbs BSA: 2.49 BP: 142/93 mmHg Indications: Shortness of Breath, Diabetes, Peripheral Edema, Hypertension/HDD,RICARDO, smoker 2D Dimensions LA Volume 34.80 mL LA Volume Index 13.60 mL/m2 (M/F) 16-34 M-Mode Dimensions RVDd 2.27 cm (0.9-2.6) LA Diam 4.23 cm (1.9-4.0) LVDd 4.69 cm (3.5-5.7) LVDs 3.10 cm (3.5-5.7) IVSd 1.82 cm (0.6-1.1) PWd 0.87 cm (0.6-1.1) EF (Teich) 62.80% FS 33.90% EDV (Teich) 101.90 mL TAPSE 2.78 (<1.7) ESV (Teich) 37.90 mL LV Diastology E Decel Time 307 (160-240 msec) E/A Ratio 1.00 MED A' 10.10 cm/s LAT A' 10.50 cm/s Aortic Valve AO Peak GR. 9.50 mmHg Mitral Valve MV A Velocity 95.0 (40-130 cm/s) E/A Ratio 1.00 Tricuspid Valve TR P. Velocity 174.00 cm/s RAP Estimate 10.00 mmHg RVSP 22.20 mmHg Left Ventricle The left ventricle is normal size. Left ventricular systolic function is normal. The left ventricular ejection fraction is within the normal range. There is increased left ventricular wall thickness. There is normal LV segmental wall motion. The left ventricular diastolic function is normal. LVEF is 55% Right Ventricle The right ventricle is normal size. The right ventricular systolic function is normal. Atria The left atrium size is normal. The right atrium size is normal. There is no color Doppler evidence of interatrial shunt. Aortic Valve The aortic valve opens well. There is no hemodynamically significant aortic valvular stenosis. No aortic regurgitation is present. Mitral Valve The mitral valve is normal in structure. No evidence of mitral valve stenosis. Trace mitral regurgitation is present. Tricuspid Valve The tricuspid valve leaflets are thin and pliable. Trace tricuspid regurgitation. There is insufficient TR jet to estimate RVSP. Pulmonic Valve The pulmonary valve is grossly normal in structure. Trace pulmonic valve regurgitation is present. Great Vessels The aortic root is normal in size. IVC is normal in size and collapses >50% with inspiration. Pericardium There is no pericardial effusion. Other Information Study Quality: Fair Conclusion Normal biventricular systolic function. No significant valvular stenosis or regurgitation. Electronically signed by : Zaira Hernández MD 06/30/2025 21:01:07
== END 2025-06-25 23:59 | disposition home or self-care (01) ==
LOC: RT 13:11
PROVIDERS: PCP Family Medicine; Visit Provider Nurse Practitioner Family
DX: R06.02 Shortness of breath (principal); R42 Dizziness and giddiness; R60.0 Localized edema; E11.9 Type 2 diabetes mellitus without complications; I10 Essential (primary) hypertension; G47.33 Obstructive sleep apnea (adult) (pediatric); F17.200 Nicotine dependence, unspecified, uncomplicated
CPT/HCPCS: 93306